=== PATIENT | male | born 1975 | race Caucasian/White ===

== ENCOUNTER 2023-09-09 06:31 | Outpatient (OUT) | payer OTHER, SELFPAY ==
[2023-09-09 06:48] LABS: Basophils Absolute Auto 0.1 10^3/uL (0.0-0.1); Basophils Percent Auto 0.8 % (0.2-2.0); Eosinophils Absolute Auto 0.1 10^3/uL (0.0-0.7); Eosinophils Percent Auto 1.4 % (0.9-7.0); Hematocrit 45.8 % (42.0-54.0); Hemoglobin 15.3 g/dL (14.0-18.0); Immature Granulocytes Abs Auto 0.05 10^3/uL (0.00-0.03); Immature Granulocytes Pct Auto 0.6 % (0.0-0.5); Lymphocytes Absolute Auto 2.4 10^3/uL (1.2-3.8); Lymphocytes Percent Auto 29.7 % (20.5-60.0); Mean Corpuscular HGB Conc 33.4 g/dL (29.9-35.2); Mean Corpuscular Hemoglobin 29.1 pg (25.9-34.0); Mean Corpuscular Volume 87.1 fL (80.0-94.0); Mean Platelet Volume 8.8 fL (9.5-13.5); Monocytes Absolute Auto 0.6 10^3/uL (0.3-0.8); Neutrophils Absolute Auto 4.8 10^3/uL (1.4-6.5); Neutrophils Percent Auto 60.5 % (43.0-75.0); Platelet Count 287 10^3/uL (150-450); Red Blood Count 5.26 10^6/uL (4.70-6.10)
[2023-09-09 07:07] LABS: Alanine Aminotransferase 32 U/L (16-63); Albumin Level 3.6 g/dL (3.4-5.0); Alkaline Phosphatase 71 U/L (46-116); Anion Gap 16.2; Aspartate Amino Transferase 17 U/L (15-37); BUN Creatinine Ratio 11.4; Bilirubin Total 0.4 mg/dL (0.2-1.0); Calcium 9.2 mg/dL (8.5-10.1); Carbon Dioxide 25.2 mmol/L (21.0-32.0); Chloride 105 mmol/L (98-107); Chol HDL Ratio 5.7; Cholesterol 279 mg/dL (<=200); Estimated GFR (African America >60 (>=60); Estimated GFR (Non-African Ame >60 (>=60); Globulin 3.7 g/dL; Glucose 104 mg/dL (74-106); HDL Cholesterol 49 mg/dL (40-60); Potassium 4.4 mmol/L (3.5-5.1); Sodium 142 mmol/L (136-145); Total Protein 7.3 g/dL (6.4-8.2); Triglycerides 197 mg/dL (<=150); VLDL CHOLESTEROL 39.4 mg/dL
[2023-09-09 09:48] LABS: Prostate Specific Antigen Scrn 1.76 ng/mL (<=4.00)
== END 2023-09-09 06:32 | disposition home or self-care (01) ==
LOC: LAB 06:34
PROVIDERS: PCP Family Medicine; Visit Provider Family Medicine
DX: Z00.00 Encounter for general adult medical examination without abnormal findings (principal)
CPT/HCPCS: 36415; 80053; 80061; 85025; G0103

== ENCOUNTER 2024-05-29 08:06 | Outpatient (OUT) | payer OTHER, SELFPAY ==
--- OUTSIDE RECORDS SUMMARY | 2024-05-29 08:20 | XMS_ITS | CCD ---
Author Organization [facility] Care Team Providers Care Health Aide Name Role Phone Saen Fishman Unavailable Unavailable Unavailable Sean Fishman Unavailable WOJCIECH, DR MILLER Attending Unavailable TIMMIS, DR MILLER Admitting Unavailable TIMMIS, DR MILLER Consulting Unavailable FISHMAN, DR SEAN Mclaughlin Primary Care Unavailable ZIEBER, DR ORLANDO Sebastian Consulting Unavailable TIMMIS, DR MILLER Admitting Unavailable TIMMIS, DR MILLER Attending Unavailable TIMMIS, DR MILLER Consulting Unavailable [place], DR YANCI Angeles Consulting Unavailable VASQUEZ ., JOSSUE Attending Unavailable VASQUEZ ., MR MARCUM Admitting Unavailable ZIEBER, DR ORLANDO Sbeastian Consulting Unavailable FISHMAN, DR SEAN Mclaughlin Primary Care Unavailable VASQUEZ ., MR JOSSUE Consulting Unavailable KYE, DR SEAN Mclaughlin Consulting Unavailable KYE, DR SEAN Mclaughlin Primary Care Unavailable FISHMAN, DR SEAN Mclaughlin Admitting Unavailable FISHMAN, DR SEAN Mclaughlin Attending Unavailable YANCI CASTRO Consulting Unavailable FISHMAN, DR SEAN Mclaughlin Attending Unavailable FISHMAN, DR SEAN Mclaughlin Consulting Unavailable KYE, DR SEAN Mclaughlin Primary Care Unavailable KYE, DR SEAN Mclaughlin Admitting Unavailable MD Dakota Leslie Attending Provider MD Dakota Leslie Referring Provider MD Sean Fishman Primary Care Provider Thompson Santana Attending Unavailable Kye, Dr. Sean Menard Primary Care Unav ailable Anuj OSORIO, Dr. Dakota Russo Attending Unavailable Anuj OSORIO, Dr. Dakota Russo Referring Unavailable Kye, Dr. Sean Menard Primary Care Unav Murray Juárez Attending Unavailable Paolo, Dr. Raman Referring Unavailable Kye, Dr. Sean Menard Primary Care Unav ailstefan Fishman, Dr. Sean Menard Primary Care Unav ailable Otto, Dr. Dakota Jean Attending Unava ilable Kye, Dr. Sean Menadr Primary Care Unav ailable Anuj OSORIO, Dr. Dakota Russo Attending Unavailable Anuj II, Dr. Dakota Russo Referring Unavailable Kye, Dr. Sean Menard Primary Care Unav ailable Thompson Santana Attending Unavailable Thompson Santana Referring Unavailable Kye, Dr. Sean Menard Primary Care Unav ailable Eugenio Dixon Unavailable MD Eugenio Dixon Attending Provider Dakota Leslie Admitting Unavail able Anuj, Dakota Russo Attending Unavail able Dakota Leslie Referring Unavail able Sean Fishman Primary Care Unavailable Anuj, Dakota Russo Admitting Unavail able Anuj, Dakota Russo Attending Unavail able Sean Fismhan Primary Care Unavailable Eugenio Dixon Admitting Unavaila ble Eugenio Dixon Attending Unavaila Sean Day Primary Care Unavailable Eugenio Dixon Admitting Unavaila ble Eugenio Dixon Attending Unavaila ble Sean Fishman Primary Care Unavailable Jonny Arteaga Unavailable Karan CRISTINA Attending Unavailable Karan CRISTINA Attending Unavailable SEAN FISHMAN Primary Care Physician Allergies Allergy Classification Reported Allergen(s) Allergy Type Date of Onset Reaction(s) Facility (1 source) No Known Medication Allergies; Translations: [No Known Medication Allergies] Propensity to adverse reactions (disorder) [facility] Repository Medications Current Medications Medication Drug Class(es) Dates Sig (Normalized) Sig (Original) [id number] 200 actuat albuterol 0.09 mg/actuat metered dose inhaler (8 sources) beta2-Adrenergic Agonist Start: 03-27-2024 Albuterol Sulfate Active 2 INH INHALATION Every 6 hours March 27, 2024 12:00am Start: 03-03-2023 take 2 puff(s) by in halation every six hours as needed Albuterol Sulfate HFA 108 (90 Base) MCG/ACT 2 puffs as needed Inhalation every 6 hrs Feb, Active Start: 03-03-2023 take 2 puff(s) by in halation every six hours as needed Albuterol Sulfate HFA 108 (90 Base) MCG/ACT 2 puffs as needed Inhalation every 6 hrs Feb, Active Start: 03-03-2023 take 2 puff(s) by in halation every six hours as needed Albuterol Sulfate HFA 108 (90 Base) MCG/ACT 2 puffs as needed Inhalation every 6 hrs for 30 days Feb, Active 24 hr alfuzosin hydrochloride 10 mg extended release oral tablet (1 source) alpha-Adrenergic Tona Start: 05-28-2024 End: 05-23-2025 take 1 tablet by mouth once daily alfuzosin 10 mg ER Tab 10 mg = 1 tab(s), Oral, Daily, X 30 day(s), # 30 tab(s), Refills(s) 11, Pharmacy: [id number], 186, cm, 05/28/24 10:05:00 EDT, Height/Length Dosing, 98, kg, 05/28/24 10:05:00 EDT, Weight Dosing Start Date: 05/28/24 Stop Date: 05/23/25 Status: Ordered Allergy (Loratadine) 10 mg oral tablet (1 source) Start: 05-28-2024 take 1 tablet by mouth once daily Allergy (Loratadine) 10 mg oral tablet 10 mg = 1 tab(s), Oral, Daily Start Date: 05/28/24 Status: Ordered Bilevel Positive Airway Pressure (Bipap) (1 source) Start: 03-27-2024 Bilevel Positive Airway Pressure (Bipap) Active 0 .Route March 27, 2024 12:00am As directed BIPAP Machine (1 source) BIPAP Machine Active fluticasone propionate 0.05 mg/actuat metered dose nasal spray (5 sources) Corticosteroid Start: 03-27-2024 Fluticasone Propionate Active 2 SPRAY INTRANASAL Daily March 27, 2024 12:00am Start: 07-04-2023 take 2 spray(s) nasa l route once daily Fluticasone Propionate 50 MCG/ACT 2 sprays in each nostril Nasally Once a day for 30 days Jun, Active Start: 07-04-2023 take 2 spray(s) nasa l route once daily Fluticasone Propionate 50 MCG/ACT 2 sprays in each nostril Nasally Once a day for 30 days Jun, Active hydroCHLOROthiazide 12.5 mg oral capsule (4 sources) Thiazide Diuretic take 1 capsule by mouth every twenty-four hours hydroCHLOROthiazide 12.5 MG 1 tablet in the morning Orally Once a day Active loratadine 10 mg oral tablet (8 sources) Start: 2023 take 10 mg by mouth once daily Loratadine Active 10 MG PO Daily March 27, 2024 12:00am take 1 tablet by deyanira th every twenty-four hours Loratadine 10 MG 1 tablet Orally Once a day Active Multi For Him - (4 sources) Multi For Him - as directed Orally Active Completed/Discontinued Medications Medication Drug Class(es) Dates Sig (Normalized) Sig (Original) 120 actuat budesonide 0.16 mg/actuat / formoterol fumarate 0.0045 mg/actuat metered dose inhaler (8 sources) Corticosteroid, beta2-Adrenergic Agonist Start: 03-27-2024 End: 04-02-2024 Budesonide-Formotero l (Symbicort) 160-4.5 mcg/actuation HFA aerosol inhaler Discontinued 2 INH INHALATION Twice daily March 27, 2024 12:00am April 02, 2024 9:22am Start: 03-03-2023 take 2 puff(s) by in halation twice daily Symbicort 160-4.5 MCG/ACT 2 puffs Inhalation Twice a day Feb, Active Start: 03-03-2023 take 2 puff(s) by in halation twice daily Symbicort 160-4.5 MCG/ACT 2 puffs Inhalation Twice a day Feb, Active hydroCHLOROthiazide 25 mg / triamterene 37.5 mg oral capsule (5 sources) Potassium-sparing Diuretic, Thiazide Diuretic take 9 capsules by mouth once daily in the morning Triamterene-HCTZ 37.5-25 MG Oral Capsule Qam Quantity: 0 Refills: 0 Ordered: 28-Jul-2022 DO Active mupirocin 0.02 mg/mg topical ointment (4 sources) RNA Synthetase Inhibitor Antibacterial Start : 06-28 Mupirocin 2 % 1 application to affected area Externally once per day for 7 days Jun, Not-Taking No Reported Medications (9 sources) No Reported Medications Quantity: 0 Refills: 0 Ordered: 14-Dec-2022 DO Active omeprazole 40 mg delayed release oral capsule (6 sources) Proton Pump Inhibitor Start : 05-28 take 1 capsule by mouth once daily omeprazole 40 mg Cap-DR 40 mg = 1 cap(s), Oral, Daily, take 1 capsule by mouth once daily Start Date: 05/28/24 Status: Ordered Start: 03-27-2024 take 40 mg by mouth once daily Omeprazole Active 40 MG PO Daily March 27, 2024 12:00am Start: 07-04-2023 take 1 capsule by mo uth every twenty-four hours Omeprazole 40 MG 1 capsule Orally Once a day for 30 days Jun, Active triamcinolone acetonide 40 mg/ml injectable suspension (13 sources) Corticosteroid Start: 02-28-2023 Kenalog-40 May, 60 mg Problems Active Problems Problem Classification Problem Date Documented Date Episodic/Chronic Allergic reactions (13 sources) H/O: multiple allergies; Translations: [Allergy status to unspecified drugs, medicaments and biological substances status] Episodic Asthma (11 sources) Mild intermittent asthma; Translations: [Mild intermittent asthma, uncomplicated] Chronic Cancer; other and unspecified primary (17 sources) Sellar ependymoma of posterior pituitary gland; Translations: [Malignant neoplasm of pituitary gland and craniopharyngeal duct] Chronic Disorders of lipid metabolism (1 source) Hypercholesterolemia 07-24-2019 Chronic Esophageal disorders (6 sources) Gastroesophageal reflux disease; Translations: [Gastro-esophageal reflux disease without esophagitis] Chronic Essential hypertension (12 sources) Hypertensive disorder; Translations: [Essential (primary) hypertension] Chronic Genitourinary symptoms and ill-defined conditions (4 sources) Sensation as if bladder still full; Translations: [Feeling of incomplete bladder emptying] Onset: 4 Episodic Hyperplasia of prostate (2 sources) Benign prostatic hypertrophy with outflow obstruction; Translations: [Benign prostatic hyperplasia with lower urinary tract symptoms] Onset: 4 Chronic Inflammatory conditions of male genital organs (1 source) Epididymitis 07-24-2019 Episodic Joint disorders and dislocations; trauma-related (4 sources) Unspecified internal derangement of left knee; Translations: [UNS INTERNAL DERANGEMENT LEFT KNEE] Onset: 2 Chronic Lymphadenitis (13 sources) Lymphadenopathy; Translations: [Localized enlarged lymph nodes] Episodic Malaise and fatigue (13 sources) Fatigue; Translations: [Other fatigue] Episodic Other aftercare (1 source) Long-term current use of inhaled steroid; Translations: [intermediate (current) use of inhaled steroids] Episodic Other aftercare (1 source) intermediate (current) use of inhaled steroids Episodic Other and ill-defined heart disease (1 source) Cardiomegaly Chronic Other and ill-defined heart disease (9 sources) Disorder of right cardiac ventricle ; Translations: [Cardiomegaly] Chronic Other diseases of bladder and urethra (1 source) Urethral stricture; Translations: [Unspecified membranous urethral stricture, male] Onset: 4 Episodic Other diseases of veins and lymphatics (1 source) Varicocele 07-24-2019 Episodic Other ear and sense organ disorders (4 sources) Sensorineural hearing loss, unilateral, left ear, with unrestricted hearing on the contralateral side; Translations: [SHL UNI LT UNRESTRCT HEAR CONTRALAT] Onset: 2 Chronic Other endocrine disorders (4 sources) Other disorders of pituitary gland; Translations: [OTHER DISORDERS OF PITUITARY GLAND] Onset: 2 Chronic Other endocrine disorders (1 source) Testicular hypofunction; Translations: [Testicular hypofunction] Onset: 4 Chronic Other endocrine disorders (1 source) Male hypogonadism 05-28-2024 Chronic Other lower respiratory disease (6 sources) Other forms of dyspnea; Translations: [OTHER FORMS OF DYSPNEA] Onset: 3 Episodic Other lower respiratory disease (9 sources) Dyspnea; Translations: [Shortness of breath] Episodic Other lower respiratory disease (1 source) Dyspnea, unspecified Episodic Other male genital disorders (1 source) Pain in testicle 07-24-2019 Episodic Other nervous system disorders (20 sources) Intracranial mass; Translations: [Other conditions of brain] Onset: 2 Chronic Other nervous system disorders (1 source) Other specified disorders of brain; Translations: [Other specified disorders of brain] Onset: 2 Chronic Other nutritional; endocrine; and metabolic disorders (1 source) Body mass index (BMI) 70 or greater, adult; Translations: [Body mass index [BMI] 70 or greater, adult] Onset: 2 Chronic Other nutritional; endocrine; and metabolic disorders (9 sources) Overweight in adulthood with body mass index of 25 or more but less than 30; Translations: [Overweight] Episodic Other nutritional; endocrine; and metabolic disorders (1 source) Body mass index 25-29 - overweight; Translations: [Body mass index (BMI) 28.0-28.9, adult] Episodic Other screening for suspected conditions (not mental disorders or infectious disease) (16 sources) Echocardiogram abnormal; Translations: [Nonspecific (abnormal) findings on radiological and other examination of other intrathoracic organs] Onset: 4 Episodic Other upper respiratory disease (8 sources) Allergic rhinitis; Translations: [Allergic rhinitis, unspecified] Chronic Other upper respiratory disease (2 sources) Allergic rhinitis, unspecified Chronic Other upper respiratory disease (4 sources) Rhinitis; Translations: [Chronic rhinitis] Chronic Other upper respiratory disease (1 source) Chronic rhinitis Chronic Otitis media and related conditions (1 source) Non-suppurative otitis media; Translations: [Unspecified nonsuppurative otitis media, left ear] Episodic Pulmonary heart disease (10 sources) Cor pulmonale; Translations: [Cor pulmonale (chronic)] Onset: 3 Chronic Residual codes; unclassified (7 sources) Daytime somnolence; Translations: [Other hypersomnia] Chronic Residual codes; unclassified (1 source) Other hypersomnia Chronic Residual codes; unclassified (6 sources) Obstructive sleep apnea syndrome; Translations: [Obstructive sleep apnea (adult) (pediatric)] Chronic Residual codes; unclassified (2 sources) Obstructive sleep apnea (adult) (pediatric) Chronic Residual codes; unclassified (14 sources) Flushing; Translations: [Flushing] Episodic Residual codes; unclassified (1 source) Family history of cancer; Translations: [Family history of malignant neoplasm of prostate] Onset: 4 Episodic Residual codes; unclassified (1 source) Family history of prostate cancer 05-28-2024 Episodic Screening and history of mental health and substance abuse codes (11 sources) Personal history of nicotine dependence; Translations: [Ex-smoker] Onset: 3 Episodic Unclassified (1 source) Other hypersomnia; Translations: [Other hypersomnia] Onset: 3 Unclassified (1 source) Male membranous urethral stricture 05-28-2024 Past or Other Problems Problem Classification Problem Date Documented Da te Episodic/Chronic Other and unspecified benign neoplasm (12 sources) Nevus of choroid; Translations: [Benign neoplasm of choroid] Onset: 08-05-2022 Episodic Other lower respiratory disease (1 source) Shortness of breath; Translations: [Shortness of breath] Onset: 12-20-2022 Episodic Residual codes; unclassified (1 source) Flushing; Translations: [Flushing] Onset: 07-28-2022 Episodic Results Test Name Value Interpretation Reference Range Facility Ambulatory Visit Summaryon 0 05-28-2024 Ambulatory Visit Summary Ambulatory Visit Summary ZAYRA YANES :1975 Visit Date:05/28/2024 Ambulatory Visit Instructions Your Diagnosis BPH with urinary obstruction Elevated PSA Membranous urethral stricture Feeling of incomplete bladder emptying Hypogonadism male Family history of prostate cancer in father Your Care Team Attending Physician - Karan CRISTINA MD Primary Care Physician - SEAN FISHMAN MD This Is Your Medications List alfuzosin (alfuzosin 10 mg ER Tab) Contact prescribing physician if questions or concerns loratadine (Allergy (Loratadine) 10 mg oral tablet) omeprazole (omeprazole 40 mg Yariel-) Procedures Performed Cystoscope (08/13/2019), TUIP - Transurethral incision of prostate (04/29/2011), Urodynamics (02/25/2011), Cystoscopy (03/20/2010), History of vasectomy (08/22/2008), Scrotal varicocelectomy (08/19/2008), Urodynamics. Discharge Vitals Heart Rate (Peripheral) 69 Respiratory Rate 16 Blood Pressure 132/93 Height 186 cm Height 73 in Weight 98 kg Weight 215.6 lb BMI 28.33 What to do next Scheduled Follow-Up Appointments Tuesday 2:45 PM EST With: Karan CRISTINA MD Where: [facility] [address] [place] [address]- You Need to Schedule the Following Appointments Follow Up with Karan CRISTINA MD, URL When: Where: [facility] [address], [place] [address]- Medications What How Much When Instructions New alfuzosin (alfuzosin 10 mg ER Tab) 1 Tablets By Mouth Every day Duration: 30 Days Refills: 11 Pickup at [facility] #[id number] Unchanged loratadine (Allergy (Loratadine) 10 mg oral tablet) 1 Tablets By Mouth Every day Contact prescribing physician if questions or concerns Unchanged omeprazole (omeprazole 40 mg Cap-DR) 1 Capsules By Mouth Every day take 1 capsule by mouth once daily Contact prescribing physician if questions or concerns Pharmacy Information [facility] #[id number]: [address], [place] [phone] Allergies No Known Medication Allergies Problems Ongoing - Any problem that you are currently receiving treatment for. BPH with urinary obstruction Elevated cholesterol Elevated PSA Epididymitis Family history of prostate cancer in father Hypogonadism male Membranous urethral stricture Nocturia Testicle pain Urinary frequency Urinary hesitancy Varicocele Patient Survey You may receive a survey via text or e-mail asking about your office visit. Please share your experience with us by completing your survey. We appreciate your feedback and thank you for choosing us for your care. Education Materials Benign Prostatic Hyperplasia Benign prostatic hyperplasia (BPH) is an enlarged prostate gland that is caused by the normal aging process. The prostate may get bigger as a man gets older. The condition is not caused by cancer. The prostate is a walnut-sized gland that is involved in the production of semen. It is located in front of the rectum and below the bladder. The bladder stores urine. The urethra carries stored urine out of the body. An enlarged prostate can press on the urethra. This can make it harder to pass urine. The buildup of urine in the bladder can cause infection. Back pressure and infection may progress to bladder damage and kidney (renal) failure. What are the causes? This condition is part of the normal aging process. However, not all men develop problems from this condition. If the prostate enlarges away from the urethra, urine flow will not be blocked. If it enlarges toward the urethra and compresses it, there will be problems passing urine. What increases the risk? This condition is more likely to develop in men older than 50 years. What are the signs or symptoms? Symptoms of this condition include: ? Getting up often during the night to urinate. ? Needing to urinate frequently during the day. ? Difficulty starting urine flow. ? Decrease in size and strength of your urine stream. ? Leaking (dribbling) after urinating. ? Inability to pass urine. This needs immediate treatment. ? Inability to completely empty your bladder. ? Pain when you pass urine. This is more common if there is also an infection. ? Urinary tract infection (UTI). How is this diagnosed? This condition is diagnosed based on your medical history, a physical exam, and your symptoms. Tests will also be done, such as: ? A post-void bladder scan. This measures any amount of urine that may remain in your bladder after you finish urinating. ? A digital rectal exam. In a rectal exam, your health care provider checks your prostate by putting a lubricated, gloved finger into your rectum to feel the back of your prostate gland. This exam detects the size of your gland and any abnormal lumps or growths. ? An exam of yo (more content not included)... Normal [facility] Urology Office/Clinic Noteon 05-28-2024 Urology Office/Clinic Note Urology Office/Clinic Note Chief Complaint Re establish care HPI Staff 49 year old male new patient presents today to re establish care. Last saw Dr. Kathleen 08/13/2019. Previous Dx: BPH with urinary obstruction, urinary frequency, urinary hesitancy, nocturia. S/P cysto/UD 08/13/2019. PVR: 203 ml IPSS: 18 Dysuria: denies Incomplete bladder emptying: yes Hematuria: denies visible blood Frequency: once an hour sometimes but usually once every 2-3 hours Urgency: denies Nocturia: once a night Stream: denies hesitancy, stream varies Leaking: denies Post void dripping: denies Wearing pads/ Depends: denies Urge incontinence: denies Stress incontinence: denies Incontinence without Sensory Awareness: denies Abdominal pain: denies Flank pain: denies Sexual complaints: _ History of Present Illness Tests reviewed: reviewed UA I have reviewed the previous health record information and history for this patient from Dr. Cristina. I have reviewed and verified the staff HPI to be accurate for this encounter. Review of Systems PHQ Score Initial Depression Screen Score: 0 SCORE ROS - Provider Constitutional: denies weight loss, denies hot flashes. Eyes: denies eye problems. Gastrointestinal: denies nausea, denies vomiting. Cardiovascular: denies chest pain or angina. Integumentary: no dryness Musculoskeletal: denies musculoskeletal symptoms. ENMT: denies otolaryngeal symptoms. Respiratory: no shortness of breath. Heme/Lymph: denies easy bleeding tendency, denies easy bruising tendency. Psychiatric: no confusion, no anxiety. Genitourinary: See HPI. Physical Exam Vitals & Measurements HR: 69(Peripheral) RR: 16 BP: 132/93 HT: 73 in HT: 186 cm WT: 98 kg WT: 215.6 lb BMI: 28.33 General Appearance: alert, no distress, well nourished, well developed male. Genitourinary: normal scrotum, normal testes, normal urethra, normal epididymis, normal vas deferens/spermatic cord. Flank Pain: none. Bladder: nonpalpable. Prostate: normal prostate, estimated weight 30 gms, no hard nodule observed. Assessment/Plan Zayra is a 49 yo male new pt here to establish care. Last seen by Dr. Kathleen 08/13/19. 1. BPH with urinary obstruction (N40.1: Benign prostatic hyperplasia with lower urinary tract symptoms) S/p TUIP by Dr. cristina 04/29/11. Cysto/UD by Dr. Kathleen 08/13/19 - a stricture in the membranous urethra. Prostatic fossa showed moderate enlargement of the lateral lobes. [1] a very slight bladder neck narrowing. [2] UA today negative for blood and infection. IPSS 18. Drinks over a gallon of water daily which causes him frequency. Cup of coffee/tea in the morning. No burning or blood. No urgency. Nocturia 1x/night, which pt attributes to being a light sleeper. Stream is variable. Discussed starting prostate med to help with stream. Pt elects to start med. -Start Alfuzosin 10 mg ER qd. SEs discussed. Rx sent [facility]. 2. Elevated PSA (R97.20: Elevated prostate specific antigen [PSA]) PSA: 09/09/23 - 1.76 Explained this level is in the absolute normal range but it is too high for his age. ALEJANDRO ~30 g, no nodules. Follow up 2 mos with PSA F&T and PVR or sooner if needed. Pt understands and agrees with plan. 3. Membranous urethral stricture (N35.913: Unspecified membranous urethral stricture, male) See #1. 4. Feeling of incomplete bladder emptying (R39.14: Feeling of incomplete bladder emptying) PVR (cc): 05/28/24 - -Start Alfuzosin above. 5. Hypogonadism male (E29.1: Testicular hypofunction) extremely tired all the time. T level last checked a few years ago, was borderline low. Educated pt that testicles can variably produces testosterone while on TRT. Pt was tested for PARAMJIT last year. CPAP did not help, BIPAP helped a little but there were no changes in his sleep study results. Shares they could treat it but it wouldn't help you. PARAMJIT contributing to fatigue. -T level prior to next OV. To be done in AM. 6. Family history of prostate cancer in father (Z80.42: Family history of malignant neoplasm of prostate) Father was unable to make it through the tests. Follow-up With When Contact Information GREG GUAMAN, Karan Sebastian, URL [facility] [address], [place] [address]- Additional Instructions: 2 mos with PSA F&T and PVR and T level Patient Education Benign Prostatic Hyperplasia I, Cierra Mccrary, personally scribed for Dr. Cristina on 05/28/2024 10:39:43. . Documentation recorded by the scribe, Cierra Mccrary, accurately reflects the services(s) I performed and decisions made by me. Authenticated by Dr. Cristina on 05/28/2024 10:41:43. Problem List/Past Medical History Ongoing BPH with urinary obstruction Elevated cholesterol Elevated PSA Epididymitis Family history of prostate cancer in father Hypogonadism male Membranous urethral stricture Nocturia Testicle pain Urinary frequency U (more content not included)... [facility] [facility] Comment on above: Result Comment: Elec tronically Signed By: Karan CRISTINA MD\.br\Date and Time Signed: 05/28/24 10:41 EDT\.br\Electronically Co-Signed By: Cierra Mccrary\.br\Date and Time Co-Signed: 05/28/24 10:40 EDT JAMISON Antinuclear Antibodieson 03-14-2023 Antinuclear Abs, IFA Negative Normal . [facility] Comment on above: Result Comment: Nega tive <1:80 Borderline 1:80 Positive >1:80 ICAP nomenclature: AC-0 For more information about Hep-2 cell patterns use ANApatterns.org, the official website for the International Consensus on Antinuclear Antibody (JAMISON) Patterns (ICAP). Performed at: [facility] [id number] Automatic Serging Machine Operator: Vinicius Quarles PhD, Phone: [phone] PERFORMED BY: [place] [address] PATHOLOGIST TAPER/FINISHER DAGO DEMARCO M.D. Performed By: #### C RP, ESR #### [address] #### JAMISON #### [facility] , C reactive protein [Mass/vol ume] in Serum or PlasmaOrdered By: Eugenio Dixon on 03-14-2023 CRP [Mass/Vol] < 0.5 mg/dL 0.0-0.5 [facility] C-Reactive Proteinon 023 CRP [Mass/Vol] mg/L Normal 0.0-0.5 [facility] Comment on above: Result Comment: PERF ORMED BY: [place] [address] PATHOLOGIST TAPER/FINISHER DAGO DEMARCO M.D. Performed By: #### C RP, ESR #### [place] [address] [place] #### JAMISON #### [facility] , CT angio chest PE protocolon 03-14-2023 CT angio chest PE protocol [facility] [place] [address] [place] [address] CT Scan Report Signed Patient: Zayra Yanes MR#: [id number] : 1975 Acct:[id number] Age/Sex: 47 / M ADM Date: 03/14/23 Loc: CT Room: Type: [facility] Attending Dr: Eugenio Dixon MD Copies to: Eugenio Dixon MD Ordering Provider: Eugenio Dixon MD Date of Service: 03/14/23 CT/CT angio chest PE protocol: I27.81 CTA Chest with PE protocol TECHNIQUE: Axial imaging with 2-D and 3-D reconstruction. 71cc of Isovue-[address] exam was performed using one or more the following dose reduction techniques: Automated exposure control, adjustment of the MA and/or Kv according to patient size, or use of the iterative reconstruction technique. History: Chest pain and shortness of breath. COMPARISON: None THYROID: Unremarkable TRACHEA AND BRONCHI: Patent ESOPHAGUS: Unremarkable. HEART: Within normal limits PERICARDIAL EFFUSION: None CORONARY ARTERY CALCIFICATION: None MEDIASTINUM: No adenopathy. No pneumoperitoneum. No mediastinal hematoma. PULMONARY ANGEL: No hilar mass or adenopathy is seen. THORACIC AORTA Unremarkable PULMONARY EMBOLUS: None LUNG NODULE None LUNGS: Lungs are clear PLEURAL EFFUSION: Done PNEUMOTHORAX: No pneumothorax seen. CHEST WALL: No abnormality AXILLA: Unremarkable BONY STRUCTURES Intact UPPER ABDOMEN: Images of the upper abdomen are noncontributory. CT/CT angio chest PE protocol IMPRESSION: No pulmonary embolus. No acute chest findings. Impression dictated by: Tommy Sierra M.D.03/14/2023 12:39 PM Dictation Location: [place] [address] Transcribed By: [facility] 03/14/23 1239 Dictated By: Tommy Sierra DO 03/14/23 1232 Signed By: 03/14/23 1239 Normal [facility] Erythrocyte Sedimentation Ra zev 03-14-2023 ESR (Bld) [Velocity] 3 mm/h Normal 0-14 [facility] Comment on above: Result Comment: PERF ORMED BY: [place] [address] PATHOLOGIST TAPER/FINISHER DAGO DEMARCO M.D. Performed By: #### C RP, ESR #### [address] #### JAMISON #### [facility] , Erythrocyte sedimentation ra te by Photometric methodOrdered By: Eugenio Dixon on 03-14-2023 ESR Photometric method (Bld) [Velocity] 3 mm/hr 0-14 [facility] Serum nuclear antibody titer Ordered By: Eugenio Dixon on 03-14-2023 Nuclear Ab (S) [Titer] Negative . [facility] Comment on above: Negative <1:80 Woo biswas 1:80 Positive >1:80ICAP nomenclature: AC-0For more information about Hep-2 cell patterns useANApaCarbonetworkserns.org, the official website for theInternational Consensus on Antinuclear Antibody (JAMISON)Patterns (ICAP).Performed at: [facility] [id number] Director: Vinicius Quarles PhD, Phone: [phone] Office Visit (Cardiology)on 12-29-2022 Follow-up visit Diagnoses/Problems Assessed Right ventricular enlargement (429.3) (I51.7) Shortness of breath (786.05) (R06.02) Overweight with body mass index (BMI) of 28 to 28.9 in adult (278.02,V85.24) (E66.3,Z68.28) Abnormal PFT (794.2) (R94.2) Orders Abnormal PFT, Shortness of breath Pulmonary Medicine Referral Evaluation and Treatment Evaluate AND Treat Status: Hold For - Scheduling,Retrospective Authorization Requested for: [id number] Overweight with body mass index (BMI) of 28 to 28.9 in adult Healthy Weight Tips; Status:Complete - Retrospective Authorization; Done: [id number] Some eating tips that can help you lose weight.; Status:Complete - Retrospective Authorization; Done: [id number] Patient Instructions Please bring all medicines, vitamins, and herbal supplements with you when you come to the office. Prescriptions will not be filled unless you are compliant with your follow up appointments or have a follow up appointment scheduled as per instruction of your physician. Refills should be requested at the time of your visit. Follow up in 6 months Chief Complaint ZAYRA YANES is being seen for a 3 week follow-up of. History of Present Illness Patient returns in follow-up of recent testing. Treadmill testing was unrevealing, as expected. Chest x-ray was clear. PFTs, though, demonstrate a response to bronchodilator therapy. The pulmonary video game technician also suggested to the patient he might have sleep apnea as an element of his PFT findings. In light of all the above it appears that the patient has no coronary disease, no left ventricular dysfunction and no arrhythmia. His problems appear to be predominantly right ventricular and pulmonary in origin and because of this I recommended pulmonary consultation. This was discussed in detail and he agrees to the plan. I suggested follow-up at the end of the summer as a backstop in his plan of care. Surgical History Problems History of Knee surgery History of Vasectomy Current Meds Medication NameInstruction No Reported Medications Allergies Medication No Known Drug Allergies Recorded By: Tennille Mcclure; 07/28/2022 10:06:10 AM Social History Problems Caffeine use (V49.89) (Z78.9) Former smoker (V15.82) (Z87.891) No illicit drug use Social alcohol use (V49.89) (Z78.9) Review of Systems Constitutional: not feeling tired. Eyes: no eyesight problems. ENT: no hearing loss and no nosebleeds. Cardiovascular: no intermittent leg claudication and as noted in HPI. Respiratory: no chronic cough and no shortness of breath. Gastrointestinal: no change in bowel habits and no blood in stools. Genitourinary: no urinary frequency and no hematuria. Skin: no skin rashes. Neurological: no seizures and no frequent falls. Psychiatric: no depression and not suicidal. All other systems have been reviewed and are negative for complaint. Vitals Vital Signs Recorded: [id number] 09:36AMRecorded: 64Zzc0644 08:37AM Heart Rate72, R Marpgf68, L Radial Ywegfsnw589, RUE, Iyvgfgx052, LUE, Sitting Lsrvkipxp71, RUE, Jcvidvj19, LUE, Sitting Height6 ft 1 in6 ft 1 in Zejoiz202 lb 216 lb BMI Kljvxobwoy13.5 kg/m228.5 kg/m2 BSA Calculated2.222.22 Tobacco Useb) No PHQ-2 Patient Declined/Screening not indicatedYes Falls Screening (Age 18+)c) Not medically indicated Physical Exam Constitutional: alert and in no acute distress. Eyes: no erythema, swelling or discharge from the eye . Neck: neck is supple, symmetric, trachea midline, no masses and no thyromegaly . Pulmonary: no increased work of breathing or signs of respiratory distress and lungs clear to auscultation. Cardiovascular: carotid pulses 2+ bilaterally with no bruit , JVP was normal, no thrills , regular rhythm, normal S1 and S2, no murmurs , pedal pulses 2+ bilaterally and no edema . Abdomen: abdomen non-tender, no masses and no hepatomegaly . Skin: skin warm and dry, normal skin turgor . Psychiatric judgment and insight is normal and oriented to person, place and time . Signatures Electronically signed by : Dakota Leslie MD; Dec 29 2022 9:38AM EST (Author) Normal [facility] Tobacco Screening.on 023 Fall risk assessment c) Not medically indicated -[facility] 600 DO Work Phone: Tobacco use status [facility]PHS b) No -[facility] 600 DO Work Phone: Tobacco Screening. Yes [facility] 600 DO Work Phone: No Panel Informationon 12-22 -[facility] 250 DO Work Phone: STR cardiac stress/regularon 12-22-2022 STR cardiac stress/regular [facility] [place] [address] Cardiac Stress Test Signed Patient: Zayra Yanes MR#: [id number] : 1975 Acct:[id number] Age/Sex: 47 / M ADM Date: 12/20/22 Loc: Room: Type: [facility] Attending Dr: Dakota Leslie MD Copies to: Dakota Leslie MD Ordering Provider: Dakota Leslie MD Date of Service: 12/20/22 STR/STR cardiac stress/regular: SOB ORDERING: Yamilet Leslie MD SUPERVISING: Yamilet Leslie MD CLINICAL INFORMATION: Dyspnea. The patient was exercised according to Javid protocol and accomplished total exercise duration of 8 minutes. Resting heart rate was 70 beats per minute. Peak heart rate 153 beats per minute, which is 88% of predicted heart rate for age. Workload was 10.1 METS. Resting blood pressure 128/80 and peak blood pressure is 182/90. With exercise, the patient had dyspnea that was extreme. Pulse oximetry was not performed. The patient had no arrhythmias and no ischemic ST-T wave changes. SUMMARY: 1. Resting EKG demonstrates normal sinus rhythm and normal EKG. 2. No angina with exercise. 3. No ischemic ST-T wave change noted. 4. There were no arrhythmias. 5. The patient had a satisfactory heart rate response. Blood pressure response was acceptable. Work capacity for age is mildly diminished. 6. This graded exercise test is normal. It demonstrates no angina, no ischemic change, and no arrhythmia. Pulse oximetry was not done even though this was our request for this test. Transcribed By: HANNAH 12/22/22 1738 Dictated By: Dakota Leslie MD 12/22/22 1649 Signed By: 12/23/22 1010 Normal [facility] Radiologyon 12-20-2022 XR Chest 2 Views Normal -[facility] 250 DO Work Phone: XR chest 2V*on 12-20-2022 XR chest 2V* [facility] [place] [address] [place] [address] XRay Report Signed Patient: Zayra Yanes MR#: [id number] : 1975 Acct:[id number] Age/Sex: 47 / M ADM Date: 12/20/22 Loc: Room: Type: [facility] Attending Dr: Dakota Leslie MD Copies to: Dakota Leslie MD Ordering Provider: Dakota Leslie MD Date of Service: 12/20/22 XR/XR chest 2V*: R06.02 Chest 2 views CLINICAL HISTORY: Left to mid chest pain for a few months. Shortness of breath. COMPARISON: None FINDINGS: Heart normal size. Lungs are clear. No free air. XR/XR chest 2V* IMPRESSION: NO ACUTE CARDIOPULMONARY ABNORMALITY. Impression dictated by: Archie Agustin Jr., D.OMacie12/20/2022 4:19 PM Dictation Location: [place] [address] Transcribed By: ROMANA 12/20/22 1619 Dictated By: Archie Agustin Jr, DO 12/20/22 1618 Signed By: 12/20/22 1619 [facility] Office Visit (Cardiology)on 12-14-2022 Follow-up visit Diagnoses/Problems Assessed Shortness of breath (786.05) (R06.02) Overweight with body mass index (BMI) of 28 to 28.9 in adult (278.02,V85.24) (E66.3,Z68.28) Former smoker (V15.82) (Z87.891) Right ventricular enlargement (429.3) (I51.7) Orders Health Maintenance IO EKG Electrocardiogram- 12 Lead; Status:Complete; Done: 14Dec2022 Overweight with body mass index (BMI) of 28 to 28.9 in adult Healthy Weight Tips; Status:Complete; Done: 14Dec2022 Some eating tips that can help you lose weight.; Status:Complete; Done: 14Dec2022 Right ventricular enlargement, Shortness of breath Cardiac Stress Test; Status:Hold For - Scheduling; Requested for:14Dec2022; Sellar ependymoma of posterior pituitary gland Stop: Triamterene-HCTZ 37.5-25 MG Oral Capsule Shortness of breath Pulmonary Function Test with/without bronchodilators; Status:Active; Requested for:14Dec2022; Xray Chest 2 View PA + Lateral; Status:Hold For - Scheduling; Requested for:14Dec2022; Radiologist to Determine Optimal Study : Y What are the patient's signs and symptoms? : shortness of breathe SocHx: Former smoker Tobacco Use Screening; Status:Complete; Done: 14Dec2022 Patient Instructions Please bring all medicines, vitamins, and herbal supplements with you when you come to the office. Prescriptions will not be filled unless you are compliant with your follow up appointments or have a follow up appointment scheduled as per instruction of your physician. Refills should be requested at the time of your visit. patient to discontinue triamterene-hctz. Follow-up after testing completed patient was walked around the office with oxygen Level of 96% The provider reviewed the following test(s) and result(s) with the patient: echocardiogram Chief Complaint ZAYRA YANES is being seen for a consultation for Lelszujm-Eogch-tzjmw ventricular enlargement. History of Present Illness Patient is seen for an abnormal echo demonstrating right ventricular enlargement. He states that he was feeling well until about 6 months ago. He had no particular illness or event. He is noted, though, slow incremental progressive and worsening decline in his aerobic capacity. He used to be able to run Ironman competitions and now finds himself easily fatigued and short of breath with minimal exertion. He describes generalized arm and leg weakness when walking. He has had no particular event. He had COVID several years ago but had no post COVID dyspnea. He had arthroscopy of his left knee months ago but had the shortness of breath even before the arthroscopy and hence I doubt deep vein thrombosis and/or pulmonary embolism. He denies any abrupt onset of the disease and it sounds as if it was slow and incremental He is low risk for coronary disease. He might have hyperlipidemia but no other risk factors. We ambulated him in the office and his oxygen saturation was stable. His echo demonstrates right ventricular enlargement but there is no suggestion of pulmonary hypertension. Nonetheless I suggest to him that isolated right ventricular changes are typically on the basis of lung disease and because of this I recommended a chest x-ray and pulmonary function studies. If these are unrevealing we might consider CT scan of the chest. Because of his complaints of shortness of breath with exertion I recommended treadmill testing. Not overtly suspicious of coronary disease but I wish to quantify his exertional dyspnea and determine if in fact he develops dyspnea with exertion and/or hypoxia with exertion. Because of this we will measure pulse oximetry during the treadmill test. I advised him that I am doubtful this is on the basis of left heart failure or valve disease or coronary disease that he appears to understand my recommendations and explanation. We will reconvene after test results become available. Surgical History Problems History of Knee surgery History of Vasectomy Current Meds Medication NameInstruction No Reported Medications Triamterene-HCTZ 37.5-25 MG Oral CapsuleQam Patient did not bring medication list or bottles. Updated verbally with patient Allergies Medication No Known Drug Allergies Recorded By: Tennille Mcclure; 07/28/2022 10:06:10 AM Social History Problems Caffeine use (V49.89) (Z78.9) Former smoker (V15.82) (Z87.891) No illicit drug use Social alcohol use (V49.89) (Z78.9) Review of Systems Constitutional: not feeling tired. Eyes: no eyesight problems. ENT: no hearing loss and no nosebleeds. Cardiovascular: no intermittent leg claudication and as noted in HPI. Respiratory: no chronic cough and no shortness of breath. Gastrointestinal: no change in bowel habits and no blood in stools. Genitourinary: no urinary frequency and no hematuria. Skin: no skin rashes. Neurological: no seizures and no frequent falls. Psychiatric: no depression and not suicidal. All other systems have been reviewed and are negative for complaint. Vitals Vital S (more content not included)... Normal [facility] PHQ-2 VITALSon 12-14-2022 Adult depression screening assessment No [facility] [address] DO Work Phone: Tobacco Screening.on 023 Tobacco use status [facility]PHS b) No [facility] DO Work Phone: ECHOCARDIO M/2D COMPLETEon 0 11-30-2022 ECHOCARDIO M/2D COMPLETE Patient: ZAYRA YANES Exam Date: 11/30/2022 : 1975 Gender:M Ordering : DR SEAN FISHMAN M.D. Admission #: [id number] Family : Order #: [id number] CLICK HERE TO VIEW EXAM ECHOCARDIOGRAM REPORT PROCEDURE: CARDIO PULMONARY ECHOCARDIO M/2D COMP INDICATIONS: Dyspnea on exertion, former smoker COMPARISON: None. DESCRIPTION: COMPLETE ECHOCARDIOGRAM Real-time transthoracic echocardiography with 2D, M-mode, spectral and color flow Doppler performed. QUALITY: Technical quality was good. LEFT VENTRICLE: Normal chamber size. Normal left ventricular wall thickness. Systolic function is at the lower limits of normal. LV EF: Lower limits of normal left ventricular ejection fraction, (50-55%). DIASTOLIC: Normal diastolic function. ATRIAL SEPTUM: LEFT ATRIUM: Normal chamber size. RIGHT ATRIUM: Normal chamber size. RIGHT VENTRICLE: Right ventricle appears enlarged with reduced systolic function. TRICUSPID VALVE: Normal mobility and thickness. No stenosis with trivial regurgitation. No evidence of pulmonary hypertension. RVSP 21 mmHg MITRAL VALVE: Normal mobility and thickness. No evidence of mitral valve stenosis. There is no mitral annular calcification. Trivial mitral regurgitation. AORTIC VALVE: Normal trileaflet appearance. No visible sclerosis. Normal leaflet mobility. No evidence of aortic valve stenosis. No aortic regurgitation. AORTIC ROOT: Normal diameter and appearance. PULMONIC VALVE: Normal thickness and mobility. No stenosis. Trivial regurgitation. PERICARDIUM: No evidence of pericardial effusion. IVC: Collapses with inspirations. PLEURA: CONCLUSION: 1. Left ventricular systolic function is at the lower limits of normal. LVEF is 50 to 55%. 2. The right ventricle appears enlarged with reduced systolic function. 3. No significant valvular dysfunction. 4. Normal right-sided pressures. 5. No pericardial effusion. 6. If clinically indicated, cardiac MRI can provide better assessment of ventricular function. Adult Echocardiography Procedure Report Left Ventricle LVEDD (3.7 - 5.6 cm): 5.34 cm LVESD (2.2 - 4.0 cm): 3.55 cm LVIVS thickness (0.6 - 1.2 cm): 1.12 cm LVPW thickness (0.5 - 1.0 cm): 0.76 cm e': 0.09 m/s E - e': 4.62 LVOT Max Gradient: 2.32 mm[Hg] Peak Velocity (LVOT): 0.76 m/s LVOT Diameter 2.50 cm Left Ventricular Ejection Fraction: 50-55 % Left Atrium LA Volume Index (2D A2C): 63.20 ml, 63.20 ml Left Atrium Systolic Dimension: 4.62 cm Mitral Valve MV E to A Ratio: 0.73 Mitral Valve A-Wave Peak Velocity: 0.58 m/s Mitral Valve E-Wave Peak Velocity: 0.43 m/s Right Ventricle Aorta AO Root Diam: 3.69 cm Aortic Valve AoV Area (Peak Frank): 4.12 cm2, 4.12 cm2 Peak Velocity(Antegrade Flow): 0.91 m/s Peak Gradient(Antegrade Flow): 3.29 mm[Hg] Tricuspid Valve Peak Velocity (Regurgitant Flow): 2.13 m/s Peak Velocity: 0.49 m/s Pulmonic Valve Mean Gradient: 2.13 mm[Hg], 2.19 mm[Hg] Mean Velocity: 0.67 m/s, 0.68 m/s Peak Velocity: 1.00 m/s, 1.02 m/s Peak Gradient: 3.97 mm[Hg], 4.20 mm[Hg] Right Atrium Right Atrium Systolic Pressure: 43.93 ml, 43.93 ml Dictated by: Feliz House M.D. on 11/30/2022 at 18:22 Approved by: Feliz House M.D. on 11/30/2022 at 18:30 Normal [facility] ECHOCARDIO M/2D COMPLETE [facility] Other XR CHEST 2 Von 11-17-2022 XR CHEST 2 V EXAM: Chest x-ray HISTORY: . Dyspnea . COMPARISON: 05/26/2010 TECHNIQUE: Frontal and lateral chest FINDINGS: Heart and vascularity are unremarkable. Lungs are expanded and free of focal infiltrates. No acute bony abnormalities appreciated. IMPRESSION: No acute heart or lung disease identified. Electronically authenticated by: YANCI CASTRO Date: 2022-11-17 16:43 Normal [facility] TESTOST,FREE AND TOTALon TESTOSTERONE TOT.LC/MS/MS 247 ng/dL Low 250-1100 [facility] Comment on above: Result Comment: For additional information, please refer to http://education.[employer]/faq/ NrfsoRprwlpzwbzdyTBOVVAYPP912 (This link is being provided for informational/ educational purposes only.) This test was developed and its analytical performance characteristics have been determined by [place] It has not been cleared or approved by the U.S. Food and Drug Administration. This assay has been validated pursuant to the CLIA regulations and is used for clinical purposes. Performed By: #### I LGF1 #### [facility] [address] [place] [address] TESTOSTERONE,FREE 55.1 pg/mL Normal 35.0-155.0 [facility] Comment on above: Result Comment: This test was developed and its analytical performance characteristics have been determined by [employer] [place], [place]. It has not been cleared or approved by the U.S. Food and Drug Administration. This assay has been validated pursuant to the CLIA regulations and is used for clinical purposes. Performed By: #### I LGF1 #### [facility] [address] [place] [address] ACTHon 08-15-2022 ACTH 21.1 pg/mL Normal 7.2-63.3 [facility] Comment on above: Result Comment: INTE RPRETIVE INFORMATION: Adrenocorticotropic Hormone Reference interval based on samples collected between 7 a.m. and 10 a.m. No reference intervals established for p.m. collections. Pediatric reference values are the same as adults (Acta Paediatr Scand 1981;70:341-345). This assay measures intact ACTH 1-39; some types of synthetic ACTH and ACTH fragments are not detected by this assay. Performed By: [place] [id number] Irrigation District Manager: Sundeep Yancey MD, PhD Performed By: #### A [facility] #### [address] [address] INSULIN-LIKE GROWTH FACTOR 1 + Z-SCOREon 08-15-2022 IGF 1 Z SCORE CALCULATION 0.0 Normal [facility] Comment on above: Result Comment: INTE RPRETIVE INFORMATION: IGF 1 Z-SCORE CALCULATION A Z score is the number of standard deviations a given result is above (positive score) or below (negative score) the age- and sex-adjusted population mean. Results that are within the IGF-1 reference interval will have a Z score between -2.0 and +2.0. Performed By: [place] [id number] Irrigation District Manager: Sundeep Yancey MD, PhD Performed By: #### I LGF1 #### [address] [address] INSULIN-LIKE GROWTH FACTOR 139 ng/mL Normal 71-224 [facility] Comment on above: Performed By: #### I LGF1 #### [address] [address] Adrenocorticotropic Hormone, Plasmaon 08-13-2022 Corticotropin (P) [Mass/Vol] 21.1 pg/mL 7.2-63.3 [facility] Monica Pedroza Work Phone: Comment on above: INTERPRETIVE INFORMA TION: Adrenocorticotropic HormoneReference interval based on samples collected between 7 a.m. and 10 a.m. No reference intervals established for p.m. collections. Pediatric reference values are the same as adults (Acta Paediatr Scand 1981;70:341-345). This assay measures intact ACTH 1-39; some types of synthetic ACTH and ACTH fragments are not detected by this assay.Performed By: [facility] [place] [id number] Director: Sundeep Yancey MD, PhD CORTISOL, A.M.on 08-13-2022 CORTISOL, A.M. 8.0 ug/dL Normal 5.0 - 20.0 [facility] Comment on above: Performed By: #### C BRITTNEY #### [address] [id number] Cortisol A.M.on 08-13-2022 Cortisol AM peak specimen [Mass or moles/Vol] 8.0 ug/dL 5.0 - 20.0 [facility] Monica Pedroza Work Phone: DHEA SULFATEon 08-13-2022 DHEA SULFATE 107 ug/dL Normal 95 - 530 [facility] Comment on above: Result Comment: MATU RITY-BASED REFERENCE RANGES: PUBERTAL ([place]) STAGE MALE FEMALE I 5 - 265 5 - 125 II 15 - 380 15 - 150 III 60 - 505 20 - 535 IV 65 - 560 35 - 485 V 165 - 500 75 - 530 Biotin interference may cause falsely elevated results. Patients taking a Biotin dose of up to 5 mg/day should refrain from taking Biotin for 24 hours before sample collection. Providers may contact their local laboratory for further information. Performed By: #### A [facility] #### [facility] [address] [place] [address] DHEA Sulfate, Serumon 2021 DHEA-S [Mass/Vol] 107 ug/dL 95 - 530 MG-Endo crinol Monica Pedroza Work Phone: Comment on above: MATURITY-BASED REFER ENCE RANGES: PUBERTAL ([place]) STAGE MALE FEMALE I 5 - 265 5 - 125 II 15 - 380 15 - 150 III 60 - 505 20 - 535 IV 65 - 560 35 - 485 V 165 - 500 75 - 530 Biotin interference may cause falsely elevated results. Patients taking a Biotin dose of up to 5 mg/day should refrain from taking Biotin for 24 hours before sample collection. Providers may contact their local laboratoryfor further information. FSH + LHon 08-13-2022 FOLLICLE STIM. HORMONE 4.9 IU/L Normal [facility] Comment on above: Result Comment: REF VALUES FOLLICULAR 2-12 MID-CYCLE 12-25 LUTEAL PHASE 2-12 MENOPAUSE 30-150 PREPUBERTY 50% ADULT ADULT MALE 2-10 INFANTS 0-1 Performed By: #### F [facility] #### [facility] [address] [place] [address] LUTEINIZING HORMONE 2.8 IU/L Normal [facility] Comment on above: Result Comment: REF VALUES FOLLICULAR PHASE 1.9-12.5 MID-CYCLE 8.7-76.3 LUTEAL PHASE 0.5-16.9 POST MENOPAUSE 5.0-55.2 CHILDREN 0- 6.0 ADULT MALE 18-70 1.5- 9.3 ADULT MALE >70 3.1-34.6 Performed By: #### F [facility] #### [facility] [address] [place] [address] INSULIN-LIKE GROWTH FACTOR 1 + Z-SCOREon 08-13-2022 Insulin-like growth factor-I [Mass/Vol] 139 ng/mL 71-224 MG-Endocrino l Monica Pedroza Work Phone: Laboratory - Chemistry and C hemistry - challengeon 08-13-2022 Follitropin Qn 4.9 {IU/L} MG-Endocri nol Monica Pedroza Work Phone: Comment on above: REF VALUESFOLLICULAR 9-99UGA-IDGXP 12-25LUTEAL PHASE 2-12MENOPAUSE 30-150PREPUBERTY 50% ADULTADULT MALE 2-10INFANTS 0-1 Lutropin Qn 2.8 {IU/L} MG-Endocrinol Monica Pedroza Work Phone: Comment on above: REF VALUESFOLLICULAR PHASE 1.9-12.5MID-CYCLE 8.7-76.3LUTEAL PHASE 0.5-16.9POST MENOPAUSE 5.0-55.2CHILDREN 0- 6.0ADULT MALE 18-70 1.5- 9.3ADULT MALE >70 3.1-34.6 Testosterone [Mass/Vol] 247 ng/dL below low threshold 250-1100 MG-Endocrinol Monica Pedroza Work Phone: Comment on above: For additional infor marcos, please refer tohttp://education.[employer]/faq/TotalTestosteroneMS OEIDR951(This link is being provided for informational/educational purposes only.) This test was developed and its analytical performancecharacteristics have been determined by [facility] [place], [place]. It hasnot been cleared or approved by the U.S. Food and DrugAdministration. This assay has been validated pursuantto the CLIA regulations and is used for clinicalpurposes. Testosterone Free [Mass/Vol] 55.1 pg/mL 35.0-155.0 MG-Endocrinol Monica Pedroza Work Phone: Comment on above: This test was develo ped and its analytical performancecharacteristics have been determined by [facility] [place] [place]. It hasnot been cleared or approved by the U.S. Food and DrugAdministration. This assay has been validated pursuantto the CLIA regulations and is used for clinicalpurposes. OSMOLALITY,URINE SPOTon 07-21 OSMOLALITY,URINE SPOT 166 mOsm/kg Low 200 - 1200 [facility] Comment on above: Performed By: #### A CT #### [facility] [address] [place] [address] Osmolality, Urine Spoton Osmolality (U) [Osmolality] 166 mosm/kg below low threshold 200 - 1200 MG-Endocrinol Monica Pedroza Work Phone: PROLACTINon 08-13-2022 PROLACTIN 6.4 ug/L Normal 2.0 - 18.0 [facility] Comment on above: Performed By: #### P ROL #### [facility] [address] [place] [address] Prolactin, Serumon Prolactin [Mass/Vol] 6.4 ug/L 2.0 - 18.0 MG-E ndocrinol Monica Pedroza Work Phone: RENAL FUNCTION PANELon 08-13 Albumin [Mass/Vol] 4.4 g/dL Normal 3.4 - 5.0 [facility] Comment on above: Performed By: #### I LGF1 #### [facility] [address] [place] [address] Anion gap [Moles/Vol] 12 mmol/L Normal 10 - 20 [facility] Comment on above: Performed By: #### I LGF1 #### [facility] [address] [place] [address] Calcium [Mass/Vol] 9.5 mg/dL Normal 8.6 - 10.3 [facility] Comment on above: Performed By: #### I LGF1 #### [facility] [address] [place] [address] Chloride [Moles/Vol] 104 mmol/L Normal 98 - 107 [facility] Comment on above: Performed By: #### I LGF1 #### [facility] [address] [place] [address] Creatinine [Mass/Vol] 0.92 mg/dL Normal 0.50 - 1.30 [facility] Comment on above: Performed By: #### I LGF1 #### [facility] [address] [place] [address] eGFR MALE >90 Normal >90 [facility] Comment on above: Result Comment: CALC ULATIONS OF ESTIMATED GFR ARE PERFORMED USING THE 2020 CKD-EPI STUDY REFIT EQUATION WITHOUT THE RACE VARIABLE FOR THE IDMS-TRACEABLE CREATININE METHODS. https://jasn.asnjournals.org/content//ASN.1011450 988 Performed By: #### I LGF1 #### [facility] [address] [place] [address] Glucose [Mass/Vol] 84 mg/dL Normal 74 - 99 [facility] Comment on above: Performed By: #### I LGF1 #### [facility] [address] [place] [address] HCO3 (Bld) [Moles/Vol] 27 mmol/L Normal 21 - 32 [facility] Comment on above: Performed By: #### I LGF1 #### [facility] [address] [place] [address] Phosphate [Mass/Vol] 2.5 mg/dL Normal 2.5 - 4.9 [facility] Comment on above: Result Comment: The performance characteristics of phosphorus testing in heparinized plasma have been validated by the individual laboratory site where testing is performed. Testing on heparinized plasma is not approved by the FDA; however, such approval is not necessary. Performed By: #### I LGF1 #### [facility] [address] [place] [address] Potassium [Moles/Vol] 3.7 mmol/L Normal 3.5 - 5.3 [facility] Comment on above: Performed By: #### I LGF1 #### [facility] [address] [place] [address] Sodium [Moles/Vol] 139 mmol/L Normal 136 - 145 [facility] Comment on above: Performed By: #### I LGF1 #### [facility] [address] [place] [address] Urea nitrogen [Mass/Vol] 13 mg/dL Normal 6 - 23 [facility] Comment on above: Performed By: #### I LGF1 #### [facility] [address] [place] [address] Renal Function Panelon 08-13 Albumin BCP dye [Mass/Vol] 4.4 g/dL 3.4 - 5.0 MG-Endocrinol bennie-Parvez Pedroza Work Phone: Anion gap [Moles/Vol] 12 mmol/L 10 - 20 MG-Endocrinol bennie-Parvez Pedroza Work Phone: [phone] Calcium [Mass/Vol] 9.5 mg/dL 8.6 - 10.3 MG-End ocrinol Regina Pedroza Work Phone: Chloride [Moles/Vol] 104 mmol/L 98 - 107 MG-E ndocrinol Regina Pedroza Work Phone: CO2 [Moles/Vol] 27 mmol/L 21 - 32 MG-Endocr inol Monica Pedroza Work Phone: Creatinine [Mass/Vol] 0.92 mg/dL See Below MG-Endocrinol Monica Pedroza Work Phone: Comment on above: Reference Range: 0.5 0 - 1.30 Glucose [Mass/Vol] 84 mg/dL 74 - 99 MG-End ocrinol Monica Pedroza Work Phone: Phosphate [Mass/Vol] 2.5 mg/dL 2.5 - 4.9 MG-E ndocrinol Monica Pedroza Work Phone: Comment on above: The performance chris acteristics of phosphorus testing in heparinized plasma have been validated by the individual laboratory site where testing is performed. Testing on heparinized plasma is not approved by the FDA; however, such approval is not necessary. Potassium [Moles/Vol] 3.7 mmol/L 3.5 - 5.3 MG-Endocrinol Monica Pedroza Work Phone: Sodium [Moles/Vol] 139 mmol/L 136 - 145 MG-End ocrinol Monica Pedroza Work Phone: Urea nitrogen [Mass/Vol] 13 mg/dL 6 - 23 MG-Endocrinol Monica Pedroza Work Phone: Renal Function Panel >90 >90 MG-E ndocrinol Monica Pedroza Work Phone: Comment on above: CALCULATIONS OF YOMI MATED GFR ARE PERFORMED USING THE 2020 CKD-EPI STUDY REFIT EQUATION WITHOUT THE RACE VARIABLE FOR THE IDMS-TRACEABLE CREATININE METHODS.https://jasn.asnjournals.org/content//ASN .6029251172 T4 - Free Thyroxine, Serumon 08-13-2022 Free T4 [Mass/Vol] 0.66 ng/dL See Below MG-End ocrinol Monica Pedroza Work Phone: Comment on above: Reference Range: 0.6 1 - 1.12 Thyroxine Free testing is performed using different testing methodology at [facility] than at [facility]. Direct result comparisons should only be made within the same method.. Biotin can cause falsely elevated free T4 results. Patients taking a Biotin dose of up to 10 mg/day should refrain from taking Biotin for 24 hours before sample collection. Patient taking a Biotin dose of >10 mg/day should consult with their physician or the laboratory before the blood draw. THYROXINE,FREEon 08-13-2022 THYROXINE,FREE 0.66 ng/dL Normal 0.61 - 1.12 [facility] Comment on above: Result Comment: Thyr oxine Free testing is performed using different testing methodology at [facility] than at [facility]. Direct result comparisons should only be made within the same method. . Biotin can cause falsely elevated free T4 results. Patients taking a Biotin dose of up to 10 mg/day should refrain from taking Biotin for 24 hours before sample collection. Patient taking a Biotin dose of >10 mg/day should consult with their physician or the laboratory before the blood draw. Performed By: #### I LGF1 #### [facility] [address] [place] [address] TSHon 08-13-2022 TSH Qn 1.06 m[IU]/L Normal 0.44 - 3.98 [facility] Comment on above: Result Comment: TSH testing is performed using different testing methodology at [facility] than at [facility]. Direct result comparisons should only be made within the same method. Performed By: #### T SH2 #### [address] [id number] TSH - Thyroid Stimulating Ho rmone, Serumon 08-13-2022 TSH Qn 1.06 m[IU]/L See Below MG-Endocrino l shirinbennieAlanParvez Yovany Work Phone: Comment on above: Reference Range: 0.4 4 - 3.98 TSH testing is performed using different testing methodology at [facility] than at other [facility]. Direct result comparisons should only be made within the same method. Ophthalmic Eye Examon 2021 Ophthalmic Eye Exam DOCUMENT REVIEWED BY : Murray Holloway MD DOCUMENT SIGNED ELECTRONICALLY BY Murray Holloway MD ON 08/05/2022 11:16:33 AM [facility] 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 Reports ferquent BOLTON in AND around his left ear left. Gtts: not at this time OU. (-) diplopia, flashes, floaters, tinnitus, pain w/ eom, photphobia OU. 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 Ear pain led to discovery of the pituitary mass. He notes 6 months or so of gradual decline in vision with reading signs. He denies noticing any peripheral vision loss. HISTORY OF PRESENT ILLNESS: PROBLEM: Blurry vision,Loss of vision,Decreasing vision LOCATION: both eyes DURATION: several months TIMING: constant HPI was performed by Dr. Murray Holloway MD and scribed by Jason Holloway MD CURRENT MEDICATIONS: Triamterene-HCTZ 37.5-25 MG Oral Capsule - Capsule, Qam[Reported] , Evaluate ALLERGIES: No Known Drug Allergies REVIEW OF SYSTEMS: GENERAL:headaches All other Review Of Systems negative Exam ORIENTATION, MOOD AND AFFECT: Alert AND oriented x3 RIGHT EYE LEFT EYE UNCORRECTED VA N/A N/A PINHOLE 20/20 20/25+1 CORRECTED VA 20/25+1 20/25 PRESSURE METHOD: Tonopen Tonopen PRESSURES: 11 11 DATE-TIME: 08/05/2022 10:12:47 AM 08/05/2022 10:12:47 AM TRAVEL TICKETING REVIEWER: [email or web address] CONFRONTATION VF Full to count fingers AND red Full to count fingers AND red object object EXTERNAL EYE EXAM: LID: Good Position Good Position PUPIL: 5 to 3 mm, no RAPD 5 to 3 mm, no RAPD ADNEXA: Normal Normal MUSCLE BALANCE: Ortho OCULAR MOTILITY: Full COLOR VA ISHIHARA OUT OF 11 OD: 11 COLOR VA ISHIHARA OUT OF 11 OS: 11 ANTERIOR SEGMENT EXAM: TEARFILM: Good Good CONJUNCTIVA: White and quiet White and quiet CORNEA: Clear Clear ANTERIOR CHAMBER: Deep and quiet Deep and quiet IRIS: Round and reactive Round and reactive LENS: Clear Clear ANTERIOR VITREOUS: Clear Clear FUNDUS EXAM: DILATION and NUMBING DROPS: Mydriacyl 1% AND Adama 2 1/2% OU 08/05/2022 11:01:24 AM CUP TO DISC: .15 .15 OPTIC DISC: [place] and sharp [place] and sharp VITREOUS: Clear Clear MACULA: Normal reflex Normal reflex VESSELS: Normal Normal PERIPHERY: Choroidal nevus 1.5 DD No tears, breaks, or holes inferior to nerve. 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 08/05/2022 OCT RNFL OD 74 with S, N AND borderline I thinning AND OS 86. 08/05/2022 HVF 24-2 OD fovea 31, scatter MD -3.84 AND OS fovea 32, scatter MD -3.16. 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 I do not see evidence of visual field loss to suggest an optic neuropathy or chiasmopathy. I will communicate with his neurosurgery team regarding options of surveillance versus intervention given these findings. Plan Surveillance of vision. Further evaluation with Neurosurgery. Refraction AND nevus monitoring with primary eye care. Follow up in 6 months with HVF AND OCT. (dilated 08/05/2022) created by:Murray Holloway MD Murray Holloway MD DOCUMENT CREATE DATE: 08/05/2022 11:16:24 AM Received for:Murray Holloway MD,PhD Aug 05 2022 11:16AM Eastern Standard Time Normal [facility] Blood Pressure Cuff Sizeon 1 09-27-2021 Adult depression screening assessment No MG-Medicine -D lidiaglfilomena Pedroza Work Phone: Fall risk assessment a) No falls within the last year UF-Lmuzvfcp-F ouglas Yovany Work Phone: Tobacco use status CPHS b) No QO-Quvbggex-I ouglas Yovany Work Phone: Blood Pressure Cuff Size Adult CS-Olnpspzk-Q ouglas Yovany Work Phone: Initial Visit (Endocrinology )on 07-28-2022 Initial Visit (Endocrinology) Diagnoses/Problems Assessed Hot flashes (782.62) (R23.2) Sellar or suprasellar mass (348.89) (G93.89) *Orders Sellar or suprasellar mass Adrenocorticotropic Hormone, Plasma; Status:Active; Requested for:28Jul2022; Perform:Lab Services - Lab To Draw (Blood Test); Due:[id number];Ordered; For:Sellar or suprasellar mass; Ordered By:Lamine Boone; Neurology - NeuroOphthalmology Referral Evaluation and Treatment Evaluate AND Treat Status: Active Requested for: 05Aug2022 Ordered;For: Sellar or suprasellar mass; Ordered By: Lamine Boone Performed: Due: [id number]; Last Updated By: Rose Garza; 08/06/2022 12:52:35 AM AMA Intake updated by [facility] (INTRANET) on 2022-08-03 22:03 New Recipient: Murray Holloway Appointment Date: 2022-08-05 09:15 AMA Intake Activity Log Entry by Dipesh Witt ([email or web address]) on 2022-08-01 13:22 Status Change: To Closed - Automated Email Cortisol A.M.; Status:Active; Requested for:28Jul2022; Perform:Lab Services - Lab To Draw (Blood Test); Due:[id number];Ordered; For:Sellar or suprasellar mass; Ordered By:Lamine Boone; DHEA Sulfate, Serum; Status:Active; Requested for:28Jul2022; Perform:Lab Services - Lab To Draw (Blood Test); Due:26Oct2022;Ordered; For:Sellar or suprasellar mass; Ordered By:Lamine Boone; FSH + LH; Status:Active; Requested for:28Jul2022; Perform:Lab Services - Lab To Draw (Blood Test); Due:26Oct2022;Ordered; For:Sellar or suprasellar mass; Ordered By:Lamine Boone; INSULIN-LIKE GROWTH FACTOR 1 + Z-SCORE; Status:Active; Requested for:28Jul2022; Perform:Lab Services - Lab To Draw (Blood Test); Due:02Aug2022;Ordered; For:Sellar or suprasellar mass; Ordered By:Lamine Boone; Osmolality, Urine Spot; Status:Active; Requested for:28Jul2022; Perform:Lab Services - Lab To Draw (Non-Blood Test); Due:26Oct2022;Ordered; For:Sellar or suprasellar mass; Ordered By:Lamine Boone; Prolactin, Serum; Status:Active; Requested for:28Jul2022; Perform:Lab Services - Lab To Draw (Blood Test); Due:26Oct2022;Ordered; For:Sellar or suprasellar mass; Ordered By:Lamine Boone; Renal Function Panel; Status:Active; Requested for:28Jul2022; Perform:Lab Services - Lab To Draw (Blood Test); Due:26Oct2022;Ordered; For:Sellar or suprasellar mass; Ordered By:Lamine Boone; T4 - Free Thyroxine, Serum; Status:Active; Requested for:28Jul2022; Perform:Lab Services - Lab To Draw (Blood Test); Due:26Oct2022;Ordered; For:Sellar or suprasellar mass; Ordered By:Lamine Boone; Testosterone Free + Total; Status:Active; Requested for:28Jul2022; Perform:Lab Services - Lab To Draw (Blood Test); Due:26Oct2022;Ordered; For:Sellar or suprasellar mass; Ordered By:Lamine Boone; TSH - Thyroid Stimulating Hormone, Serum; Status:Active; Requested for:[id number]; Perform:Lab Services - Lab To Draw (Blood Test); Due:08Sph7727;Ordered; For:Sellar or suprasellar mass; Ordered By:Lamine Boone; Sellar or suprasellar mass (348.89) (G93.89) Patient Discussion/Summary It was my pleasure to take care of you today in the office. Below are the things we discussed today: We will start by checking blood work Neuroophthalmology referral Dr. Holloway We will discuss with Dr. Santana when blood work is back Please Call Dr. Boone at [phone] with questions Follow up in 6 months Provider Impressions Mr. Yanes is a 47 year old M referred for evaluation of sellar mass Patient started having ear ache on the left with headache several month ago MRI sella done in February was reviewed showed a nonenhancing 1.2 cm mass in the center Hot flashes and sometimes night sweats. Energy lower and having trouble staying active ENT did not find anything wrong Headache: Every night at 7pm, left ear pain as if there's fluid. Behind the ear that improves with sleep. sinus pressure and sinus pressure. ENT started him on Triamterene-HCTZ Allergy meds for sinus headache Double vision: Eyes getting worse rapidly. last 6 months Energy: Drinks more coffee 2 cups in the morning and 1 cup after work. Usually very active. But now not able to workout as much declining over the past year Weight: Gaining a little bit of weight since not exercising. 10 lbs in 6 months Polyuria, polydipsia and Nocturia: Thirsty a lot, Drinks 24 ounces 3-4 during the day Low libido (getting worse over the last year) No morning erection for the past year Difficulty maintaining erection (For a while) Blood work done in April showed a DHEA-S of 155, ACTH of 19.8, with a free cortisol 0.22 mcg (normal) Prolactin was 7, I IGF-I was 184, free thyroxine was 1.07 and FSH was 5.5 Reports symptoms of hypogonadism No evidence of hormonal hypersecretion Plan We will repeat pituitary panel including testosterone FSH LH HPA axis evaluation and thyroid evaluation We will discuss further management with Dr. Santana after blood work is back Neuro ophthalmology referral Available labs and notes were personally reviewed Return to cli (more content not included)... Normal [facility] MRI KNEE LT WO CONon 022 MRI KNEE LT WO CON EXAMINATION: MRI KNE E LT WO CON HISTORY: Derangement of left knee ; acute left knee pain after triathlon COMPARISON: No relevant comparison available. TECHNIQUE: A complete multi-planar MRI was performed. FINDINGS: MEDIAL COMPARTMENT MEDIAL MENISCUS: No visible tear or significant degeneration. CARTILAGE: No visible defect. BONES: No marrow pathology, fracture, or significant arthropathy. MCL AND MEDIAL CAPSULE: Normal medial collateral ligament and medial capsule. LATERAL COMPARTMENT LATERAL MENISCUS: No visible tear or significant degeneration. CARTILAGE: No visible defect. BONES: No marrow pathology, fracture, or significant arthropathy. LCL/POSTEROLAT COMPLEX: Normal lateral collateral ligament, fascicles, lateral capsule and ligaments. ANTERIOR COMPARTMENT PATELLA: No marrow pathology, fracture, or significant arthropathy. CARTILAGE: No visible defect. TENDONS: Normal. EFFUSION: None. No synovitis or loose bodies. ACL: Normal appearing ligament. PCL: Normal appearing ligament. MENISCOFEMORAL: Normal meniscofemoral ligaments. OTHER: Negative. IMPRESSION: 1. No acute or appreciable degenerative changes to account for patient's symptoms. Normal examination. Electronically authenticated by: ORLANDO PUTNAM Date: 2022-05-20 15:25 Normal [facility] CORTISOL-FREE,SERUMon 2021 CORTISOL-FREE,SERUM 0.22 mcg/dL Normal [facility] Comment on above: Result Comment: Adul t Reference Ranges for Cortisol, MS, Free: . 8:00 - 10:00 AM 0.07-0.93 mcg/dL 4:00 - 6:00 PM 0.04-0.45 mcg/dL 10:00 - 11:00 PM 0.04-0.35 mcg/dL . This test was developed and its analytical performance characteristics have been determined by [facility]. It has not been cleared or approved by FDA. This assay has been validated pursuant to the CLIA regulations and is used for clinical purposes. Performed By: #### I [facility] #### [address] [address] GROWTH HORMONEon 05-14-2022 GROWTH HORMONE <0.05 Low 0.05-3.00 [facility] Comment on above: Result Comment: Perf ormed By: [address] [address] Irrigation District Manager: Sundeep Yancey MD, PhD Performed By: #### I LGF1 #### [address] [address] ACTHon 05-13-2022 ACTH 19.8 pg/mL Normal 7.2-63.3 [facility] Comment on above: Result Comment: INTE RPRETIVE INFORMATION: Adrenocorticotropic Hormone Reference interval based on samples collected between 7 a.m. and 10 a.m. No reference intervals established for p.m. collections. Pediatric reference values are the same as adults (Acta Paediatr Scand 1981;70:341-345). This assay measures intact ACTH 1-39; some types of synthetic ACTH and ACTH fragments are not detected by this assay. Performed By: [place] [address] Irrigation District Manager: Sundeep Yancey MD, PhD Performed By: #### I LGF1 #### [place] [id number] INSULIN-LIKE GROWTH FACTOR 1 + Z-SCOREon 05-13-2022 IGF 1 Z SCORE CALCULATION 1.0 Normal [facility] Comment on above: Result Comment: INTE RPRETIVE INFORMATION: IGF 1 Z-SCORE CALCULATION A Z score is the number of standard deviations a given result is above (positive score) or below (negative score) the age- and sex-adjusted population mean. Results that are within the IGF-1 reference interval will have a Z score between -2.0 and +2.0. Performed By: [place] [address] Irrigation District Manager: Sundeep Yancey MD, PhD Performed By: #### I LGF1 #### [address] [address] INSULIN-LIKE GROWTH FACTOR 184 ng/mL Normal 71-224 [facility] Comment on above: Performed By: #### I LGF1 #### [address] [address] Chart Updateon 05-11-2022 Chart Update Chart Update Basic endocrine labs all normal except a very mildly elevated calcium. Will await other results. Signatures Electronically signed by : Thompson Santana MD; May 11 2022 11:32AM EST (Author) [facility] Adrenocortic[facility] Hormone, Plasmaon 05-10-2022 Corticotropin (P) [Mass/Vol] 19.8 pg/mL 7.2-63.3 MG-Neurosurge Counts include 234 beds at the [facility] Work Phone: Comment on above: INTERPRETIVE INFORMA TION: Adrenocorticotropic HormoneReference interval based on samples collected between 7 a.m. and 10 a.m. No reference intervals established for p.m. collections. Pediatric reference values are the same as adults (Acta Paediatr Scand 1981;70:341-345). This assay measures intact ACTH 1-39; some types of synthetic ACTH and ACTH fragments are not detected by this assay.Performed By: [facility] [place] [address] [id number] Director: Sundeep Yancey MD, PhD BASIC METABOLIC PANELon 04-20 Anion gap [Moles/Vol] 14 mmol/L Normal 10 - 20 MG-Neurosurge Counts include 234 beds at the [facility] Work Phone: Comment on above: Performed By: #### I LGF1 #### [facility] [address] [place] [address] Calcium [Mass/Vol] 10.7 mg/dL High 8.6 - 10.6 MG-Micahel rosurge Counts include 234 beds at the [facility] Work Phone: Comment on above: Performed By: #### I LGF1 #### [facility] [address] [place] [address] Chloride [Moles/Vol] 101 mmol/L Normal 98 - 107 MG-N eurosurge Counts include 234 beds at the [facility] Work Phone: Comment on above: Performed By: #### I LGF1 #### [facility] [address] [place] [address] Creatinine [Mass/Vol] 0.95 mg/dL Normal 0.50 - 1.30 MG-Neurosurge Counts include 234 beds at the [facility] Work Phone: Comment on above: Reference Range: 0.5 0 - 1.30 Performed By: #### I LGF1 #### [facility] [address] [place] [address] eGFR MALE >90 Normal >90 [facility] Comment on above: Result Comment: CALC ULATIONS OF ESTIMATED GFR ARE PERFORMED USING THE 2020 CKD-EPI STUDY REFIT EQUATION WITHOUT THE RACE VARIABLE FOR THE IDMS-TRACEABLE CREATININE METHODS. https://jasn.asnjournals.org/content/early/ASN.6919546 988 Performed By: #### I LGF1 #### [facility] [address] [place] [address] Glucose [Mass/Vol] 98 mg/dL Normal 74 - 99 MG-Michael rosurge Counts include 234 beds at the [facility] Work Phone: Comment on above: Performed By: #### I LGF1 #### [facility] [address] [place] [address] HCO3 (Bld) [Moles/Vol] 29 mmol/L Normal 21 - 32 [facility] Comment on above: Performed By: #### I LGF1 #### [facility] [address] [place] [address] Potassium [Moles/Vol] 4.2 mmol/L Normal 3.5 - 5.3 MG-Neurosurge Counts include 234 beds at the [facility] Work Phone: Comment on above: Performed By: #### I LGF1 #### [facility] [address] [place] [address] Sodium [Moles/Vol] 140 mmol/L Normal 136 - 145 MG-Michael rosurge Counts include 234 beds at the [facility] Work Phone: Comment on above: Performed By: #### I LGF1 #### [facility] [address] [place] [address] Urea nitrogen [Mass/Vol] 13 mg/dL Normal 6 - 23 MG-Neurosurge Counts include 234 beds at the [facility] Work Phone: Comment on above: Performed By: #### I LGF1 #### [facility] [address] [place] [address] COAGULATION SCREENon 022 APTT Canceled Normal [facility] Comment on above: Order Comment: TEST COAGULATION SCREEN WAS CANCELLED, 05/10/2022 13:19 QNS, PLEASE RESUBMIT.. Result Comment: THE APTT IS NO LONGER USED FOR MONITORING UNFRACTIONATED HEPARIN THERAPY. FOR MONITORING HEPARIN THERAPY, USE THE HEPARIN ASSAY. Performed By: #### I LGF1 #### [facility] [address] [employer] [facility] [place] [facility] [place] [address] PROTHROMBIN TIME Canceled Normal [facility] Comment on above: Order Comment: TEST COAGULATION SCREEN WAS CANCELLED, 05/10/2022 13:19 QNS, PLEASE RESUBMIT.. Performed By: #### I LGF1 #### [facility] [address] [facility] [place] [facility] [place] [address] PT, INR Canceled Normal [facility] Comment on above: Order Comment: TEST COAGULATION SCREEN WAS CANCELLED, 05/10/2022 13:19 QNS, PLEASE RESUBMIT.. Performed By: #### I LGF1 #### [facility] [address] [place] [facility] [place] [address] Cortisol-Free, Serumon 05-10 Cortisol Free [Mass/Vol] 0.22 {mcg/dL} MG-Neurosurge ry-[facility] Work Phone: Comment on above: Adult Reference Rang es for Cortisol, MS, Free:. 8:00 - 10:00 AM 0.07-0.93 mcg/dL 4:00 - 6:00 PM 0.04-0.45 mcg/dL 10:00 - 11:00 PM 0.04-0.35 mcg/dL.This test was developed and its analytical performance characteristicshave been determined by [employer] [facility]. It has not been cleared or approved by FDA. This assay hasbeen validated pursuant to the CLIA regulations and is used forclinical purposes. DHEA SULFATEon 05-10-2022 DHEA SULFATE 155 ug/dL Normal 95 - 530 [facility] Comment on above: Result Comment: MATU RITY-BASED REFERENCE RANGES: PUBERTAL (KALPANA) STAGE MALE FEMALE I 5 - 265 5 - 125 II 15 - 380 15 - 150 III 60 - 505 20 - 535 IV 65 - 560 35 - 485 V 165 - 500 75 - 530 Biotin interference may cause falsely elevated results. Patients taking a Biotin dose of up to 5 mg/day should refrain from taking Biotin for 24 hours before sample collection. Providers may contact their local laboratory for further information. Performed By: #### D TOMY #### [facility] [address] [place] [address] DHEA Sulfate, Serumon 2021 DHEA-S [Mass/Vol] 155 ug/dL 95 - 530 MG-Neur osurge Counts include 234 beds at the [facility] Work Phone: Comment on above: MATURITY-BASED REFER ENCE RANGES: PUBERTAL (KALPANA) STAGE MALE FEMALE I 5 - 265 5 - 125 II 15 - 380 15 - 150 III 60 - 505 20 - 535 IV 65 - 560 35 - 485 V 165 - 500 75 - 530 Biotin interference may cause falsely elevated results. Patients taking a Biotin dose of up to 5 mg/day should refrain from taking Biotin for 24 hours before sample collection. Providers may contact their local laboratoryfor further information. FOLLICLE STIM. HORMONEon FOLLICLE STIM. HORMONE 5.5 IU/L Normal [facility] Comment on above: Result Comment: REF VALUES FOLLICULAR 2-12 MID-CYCLE 12-25 LUTEAL PHASE 2-12 MENOPAUSE 30-150 PREPUBERTY 50% ADULT ADULT MALE 2-10 INFANTS 0-1 Performed By: #### F #### [facility] [address] [place] [address] Follicle Stimulating Hormone , Serumon 05-10-2022 Follitropin Qn 5.5 {IU/L} MG-Neurosu rge Counts include 234 beds at the [facility] Work Phone: Comment on above: REF VALUESFOLLICULAR 2-29HDY-WCLIR 12-25LUTEAL PHASE 2-12MENOPAUSE 30-150PREPUBERTY 50% ADULTADULT MALE 2-10INFANTS 0-1 Human Growth Hormone, Serumo n 05-10-2022 Growth hormone-releasing hormone [Mass/Vol] <0.05 below low threshold 0.05-3.00 MG-Neurosurge Counts include 234 beds at the [facility] Work Phone: Comment on above: Performed By: MILLIE [address] [id number] Director: Sundeep Yancey MD, PhD INSULIN-LIKE GROWTH FACTOR 1 + Z-SCOREon 05-10-2022 Insulin-like growth factor-I [Mass/Vol] 184 ng/mL 71-224 MG-Neurosurg e Counts include 234 beds at the [facility] Work Phone: Initial Visit (Neurosurgery) on 05-10-2022 Initial Visit (Neurosurgery) Diagnoses/Problems 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) Sellar or suprasellar mass (348.89) (G93.89) Orders Sellar ependymoma of posterior pituitary gland Adrenocorticotropic Hormone, Plasma; Status:Active - Retrospective Authorization; Requested for:[id number]; Neurology - NeuroOphthalmology Referral Evaluation and Treatment Evaluate AND Treat Status: Hold For - Scheduling,Retrospective Authorization Requested for: 10May2022 Basic Metabolic Panel; Status:Active - Retrospective Authorization; Requested for:[id number]; Coagulation Screen; Status:Active - Retrospective Authorization; Requested for:[id number]; Cortisol-Free, Serum; Status:Active - Retrospective Authorization; Requested for:[id number]; DHEA Sulfate, Serum; Status:Active - Retrospective Authorization; Requested for:[id number]; Follicle Stimulating Hormone, Serum; Status:Active - Retrospective Authorization; Requested for:[id number]; Human Growth Hormone, Serum; Status:Active - Retrospective Authorization; Requested for:[id number]; INSULIN-LIKE GROWTH FACTOR 1 + Z-SCORE; Status:Active - Retrospective Authorization; Requested for:[id number]; Prolactin, Serum; Status:Active - Retrospective Authorization; Requested for:[id number]; T3 - Free Triiodothyronine, Serum; Status:Active - Retrospective Authorization; Requested for:[id number]; T4 - Free Thyroxine, Serum; Status:Active - Retrospective Authorization; Requested for:[id number]; Patient Discussion/Summary Mr. Yanes is a 47-year-old man with a several month history of left-sided headache and ear pain. He underwent radiological imaging which demonstrated the presence of a sellar mass. He also complains of increased lethargy and not having his usual stamina. The MRI of the sella from March 17 shows as nonenhancing 1.2 cm mass in the center of the gland. I believe we should obtain baseline endocrinological studies as well as a formal visual exam to determine the best optimal management. I will obtain a consult from my colleague Dr. Erwin Mondragon and reevaluate Mr. Yanes after we have the results of these consultations. Provider Impressions Mr. Yanes is a 47-year-old man with a several month history of left-sided headache and ear pain. He underwent radiological imaging which demonstrated the presence of a sellar mass. He also complains of increased lethargy and not having his usual stamina. The MRI of the sella from March 17 shows as nonenhancing 1.2 cm mass in the center of the gland. I believe we should obtain baseline endocrinological studies as well as a formal visual exam to determine the best optimal management. I will obtain a consult from my colleague Dr. Erwin Mondragon and reevaluate Mr. Yanes after we have the results of these consultations. Chief Complaint Patient is being seen for an initial Neurosurgical evaluation and Sellar mass. History of Present Illness Mr. Yanes is a 47-year-old man with a several month history of left-sided headache and ear pain. He underwent radiological imaging which demonstrated the presence of a sellar mass. He also complains of increased lethargy and not having his usual stamina. 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) Physical Exam Pt is alert and oriented with normal affect no acute distress, well developed man appearing his stated age gait and station normal normal sclera moist mucus membranes no peripheral edema symmetric chest rise nondistended abdomen extraocular movements intact full strength in all extremities normal sensation throughout no dysmetria Signatures Electronically signed by : Thompson Santana MD; May 10 2022 11:04AM EST (Author) Normal [facility] - Chemistry and C hemistry - challengeon 05-10-2022 CO2 [Moles/Vol] 29 mmol/L 21 - 32 MG-Neuros urge Counts include 234 beds at the [facility] Work Phone: Laboratory - Coagulationon 0 05-10-2022 aPTT Coag (PPP) [Time] Canceled MG-Neurosurge Counts include 234 beds at the [facility] Work Phone: Comment on above: THE APTT IS NO LONGE R USED FOR MONITORING UNFRACTIONATED HEPARIN THERAPY. FOR MONITORING HEPARIN THERAPY, USE THE HEPARIN ASSAY. INR Coag (PPP) [Relative time] Canceled MG-Neurosurge Counts include 234 beds at the [facility] Work Phone: PT Coag (PPP) [Time] Canceled MG-N eurosurge Counts include 234 beds at the [facility] Work Phone: No Panel Informationon 05-10 >90 >90 MG-Neurosurge Counts include 234 beds at the [facility] Work Phone: Comment on above: CALCULATIONS OF YOMI MATED GFR ARE PERFORMED USING THE 2020 CKD-EPI STUDY REFIT EQUATION WITHOUT THE RACE VARIABLE FOR THE IDMS-TRACEABLE CREATININE METHODS.https://jasn.asnjournals.org/content/early//ASN .3867495237 PROLACTINon 05-10-2022 PROLACTIN 7.0 ug/L Normal 2.0 - 18.0 [facility] Comment on above: Performed By: #### P ROL #### [facility] [address] [place] [address] Prolactin, Serumon 2 Prolactin [Mass/Vol] 7.0 ug/L 2.0 - 18.0 MG-N eurosurge Counts include 234 beds at the [facility] Work Phone: T3 - Free Triiodothyronine, Serumon 05-10-2022 Free T3 [Mass/Vol] 3.5 pg/mL 2.3 - 4.2 MG-Michael rosurge Counts include 234 beds at the [facility] Work Phone: T4 - Free Thyroxine, Serumon 05-10-2022 Free T4 [Mass/Vol] 1.07 ng/dL See Below MG-Michael rosurge Counts include 234 beds at the [facility] Work Phone: Comment on above: Reference Range: 0.7 8 - 1.48 Thyroxine Free testing is performed using different testing methodology at [facility] than at other [facility]. Direct result comparisons should only be made within the same method. THYROXINE,FREEon 05-10-2022 THYROXINE,FREE 1.07 ng/dL Normal 0.78 - 1.48 [facility] Comment on above: Result Comment: Thyr oxine Free testing is performed using different testing methodology at [facility] than at other [facility]. Direct result comparisons should only be made within the same method. Performed By: #### I LGF1 #### [facility] [address] [facility] [place] [facility] [place] [address] TRIIODOTHYRONINE,FREEon 04-20 TRIIODOTHYRONINE,THOMAS E 3.5 pg/mL Normal 2.3 - 4.2 [facility] Comment on above: Performed By: #### I LGF1 #### [facility] [address] [facility] [place] [facility] [place] [address] Tobacco Screening.on 022 Fall risk assessment a) No falls within the last year MG-Neurosurge Counts include 234 beds at the [facility] Work Phone: Tobacco use status CPHS b) No -Neurosurge Counts include 234 beds at the [facility] Work Phone: MRI PITUITARY WO W CONon MRI PITUITARY WO W CON EXAMINATION: MRI PITUITARY WO W CON HISTORY: Disorder of pituitary gland COMPARISON: 02/01/2022 TECHNIQUE: A variety of imaging planes and parameters were utilized for visualization of suspected pathology. Images were performed without and with 20 ml intravenous Dotarem contrast. FINDINGS: PITUITARY: Pituitary gland is enlarged in size. Centrally within the pituitary gland is a focal 1.1 x 1.2 x 1.1 cm area of hypointensity which does not demonstrate postcontrast enhancement. This area measures 2600 units on precontrast imaging and 2100 units on postcontrast imaging. Peripheral enhancement is observed likely representing displaced normal pituitary gland. BRAIN: Limited views of the included areas are unremarkable. SINUSES: Limited views of the included areas demonstrate no significant mucosal thickening or fluid. ORBITS: Limited views are unremarkable. OTHER: Negative. IMPRESSION: Nonenhancing 1.2 cm pituitary mass. 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 The differential diagnosis does include infarcted mass or large blood vessel, but these are much less likely Electronically authenticated by: YANCI GUILLEN Date: 2022-03-17 17:48 Normal [facility] XR FOREIGN BODY EYEon 2021 XR FOREIGN BODY EYE EXAMINATION: XR FORE IGN BODY EYE HISTORY: Foreign body in eye COMPARISON: No relevant comparison available. FINDINGS: ORBITS: Negative for a metallic foreign body. OTHER: Negative. IMPRESSION: 1. No metallic foreign body within the orbits. Electronically authenticated by: ORLANDO PUTNAM Date: 2022-02-01 13:41 Normal [facility] Vital Signs Date Time Vital Sign Value Performing Clinician Soraida chatterjee 05-28-2024 09:56-0400 Blood Pressure Location [facility] [place] 05-28-2024 09:56-0400 Diastolic blood pressure 93 mm[Hg] [facility]an [facility] 05-28-2024 09:56-0400 Heart rate 69 /min Karan [facility] 05-28-2024 09:56-0400 Respiratory rate 16 /min Karan [facility] [place] 05-28-2024 09:56-0400 Systolic blood pressure 132 mm[Hg] Karan [facility] 04-02-2024 09:23-0400 Body height 185.42 cm [facility] 04-02-2024 09:23-0400 Body mass index (BMI) [Ratio] 29.1 kg/m2 [facility] 04-02-2024 09:23-0400 Body temperature 97 [degF] [facility] 04-02-2024 09:23-0400 Body weight 100.24 kg [facility] 04-02-2024 09:23-0400 Diastolic blood pressure 95 mm[Hg] [facility] 04-02-2024 09:23-0400 Heart rate 74 /min [facility] 04-02-2024 09:23-0400 Respiratory rate 20 /min [facility] 04-02-2024 09:23-0400 SaO2% (BldA) [Mass fraction] 96 % [facility] 04-02-2024 09:23-0400 Systolic blood pressure 128 mm[Hg] [facility] 10-03-2023 09:30-0500 Body height 185.42 cm Jonny Crawfordsa Other [facility] Other 10-03-2023 09:30-0500 Body mass index (BMI) [Ratio] 27.97 kg/m2 [employer]ny [employer] Other [facility] Other 10-03-2023 09:30-0500 Body temperature 98.4 [degF] Jonny Samsa Other [facility] Other 10-03-2023 09:30-0500 Body weight 96.16 kg Jonny Samsa Other [facility] Other 10-03-2023 09:30-0500 Diastolic blood pressure 92 mm[Hg] Jonny Samsa Other [facility] Other 10-03-2023 09:30-0500 Respiratory rate 20 /min Jonny [employer] Other [facility] Other 10-03-2023 09:30-0500 SaO2% (BldA) [Mass fraction] 95 % Jonny Samsa Other [facility] Other 10-03-2023 09:30-0500 Systolic blood pressure 128 mm[Hg] Jonny Samsa Other [facility] Other 08-29-2023 15:30-0500 Body height 185.42 cm Sean Fishman Other [facility] Other 08-29-2023 15:30-0500 Body mass index (BMI) [Ratio] 28.39 kg/m2 Sean Fishman Other [facility] Other 08-29-2023 15:30-0500 Body weight 97.61 kg Sean Fishman Other [facility] Other 08-29-2023 15:30-0500 Diastolic blood pressure 92 mm[Hg] Sean Fishman Other [facility] Other 08-29-2023 15:30-0500 Systolic blood pressure 130 mm[Hg] Sean Fishman Other [facility] Other 07-04-2023 09:15-0400 Body height 185.42 cm Eugenio Dixon Other [facility] Other 07-04-2023 09:15-0400 Body mass index (BMI) [Ratio] 27.44 kg/m2 Keer Zack Other [facility] Other 07-04-2023 09:15-0400 Body temperature 97.6 [degF] Keer Zakc Other [facility] Other 07-04-2023 09:15-0400 Body weight 94.35 kg Keer Zack Other [facility] Other 07-04-2023 09:15-0400 Diastolic blood pressure 90 mm[Hg] Keer Zack Other [facility] Other 07-04-2023 09:15-0400 Respiratory rate 20 /min Christopher Zack Other [facility] Other 07-04-2023 09:15-0400 SaO2% (BldA) [Mass fraction] 97 % Christopher Zack Other [facility] Other 07-04-2023 09:15-0400 Systolic blood pressure 132 mm[Hg] Christopher Zack Other [facility] Other 03-03-2023 10:30-0400 Body height 185.42 cm Christopher Zack Other [facility] Other 03-03-2023 10:30-0400 Body mass index (BMI) [Ratio] 28.1 kg/m2 Christopher Zack Other [facility] Other 03-03-2023 10:30-0400 Body weight 96.62 kg Christopher Zack Other [facility] Other 03-03-2023 10:30-0400 Diastolic blood pressure 84 mm[Hg] Christopher Zack Other [facility] Other 03-03-2023 10:30-0400 Respiratory rate 20 /min Christopher Zack Other [facility] Other 03-03-2023 10:30-0400 SaO2% (BldA) [Mass fraction] 98 % Christopher Zack Other [facility] Other 03-03-2023 10:30-0400 Systolic blood pressure 132 mm[Hg] Eugenio Campono Other [facility] Other 02-28-2023 15:45-0400 Body height 185.42 cm Sean Fishman Other [facility] Other 02-28-2023 15:45-0400 Body mass index (BMI) [Ratio] 28.76 kg/m2 Sean Fishman Other [facility] Other 02-28-2023 15:45-0400 Body weight 98.88 kg Sean Fishman Other [facility] Other 02-28-2023 15:45-0400 Diastolic blood pressure 84 mm[Hg] Sean Fishman Other [facility] Other 02-28-2023 15:45-0400 SaO2% (BldA) [Mass fraction] 97 % Sean Fishman Other [facility] Other 02-28-2023 15:45-0400 Systolic blood pressure 128 mm[Hg] Sean Fishman Other [facility] Other 12-29-2022 09:36-0400 Body height 185.42 cm Sean Fishman Work Phone: [facility] [address] Work Phone: 12-29-2022 09:36-0400 Body mass index (BMI) [Ratio] 28.5 kg/m2 Sean Fishman Work Phone: [facility] [address] Work Phone: 12-29-2022 09:36-0400 Body surface area Derived from formula 2.22 m2 Sean Fishman Work Phone: [facility] [address] DO Work Phone: 12-29-2022 09:36-0400 Body weight 97.98 kg Sean Fishman Work Phone: [facility] [address] DO Work Phone: 12-29-2022 09:36-0400 Diastolic blood pressure 86 mm[Hg] Sean Fishman Work Phone: [facility] [address] DO Work Phone: 12-29-2022 09:36-0400 Heart rate 72 /min Sean Fishman Work Phone: [facility] [address] DO Work Phone: 12-29-2022 09:36-0400 Systolic blood pressure 136 mm[Hg] Sean Fishman Work Phone: [facility] [address] DO Work Phone: 12-29-2022 08:37-0400 Body height 185.42 cm Sean Fishman Work Phone: [facility] [address] DO Work Phone: 12-29-2022 08:37-0400 Body mass index (BMI) [Ratio] 28.5 kg/m2 Sean Fishman Work Phone: [facility] [address] Work Phone: 12-29-2022 08:37-0400 Body surface area Derived from formula 2.22 m2 Sean Fishman Work Phone: [facility] [address] DO Work Phone: 12-29-2022 08:37-0400 Body weight 97.98 kg Sean Fishman Work Phone: [facility] [address] DO Work Phone: 12-29-2022 08:37-0400 Diastolic blood pressure 96 mm[Hg] Sean Fishman Work Phone: [facility] [address] DO Work Phone: 12-29-2022 08:37-0400 Heart rate 72 /min Sean Fishman Work Phone: [facility] [address] DO Work Phone: 12-29-2022 08:37-0400 Systolic blood pressure 136 mm[Hg] Sean Fishman Work Phone: [facility] [address] DO Work Phone: 12-14-2022 10:40-0400 Heart rate 80 /min Sean Fishman Work Phone: [facility] 250 DO Work Phone: 12-14-2022 10:39-0400 Diastolic blood pressure 86 mm[Hg] Sean Fishman Work Phone: [facility] 250 DO Work Phone: 12-14-2022 10:39-0400 Systolic blood pressure 130 mm[Hg] Sean Fishman Work Phone: [facility] 250 DO Work Phone: 12-14-2022 10:38-0400 Body height 185.42 cm Sean Fishman Work Phone: [facility] 250 DO Work Phone: 12-14-2022 10:38-0400 Body mass index (BMI) [Ratio] 28.23 kg/m2 Sean Fishman Work Phone: [facility] [address] DO Work Phone: 12-14-2022 10:38-0400 Body surface area Derived from formula 2.21 m2 Sean Fishman Work Phone: [facility] 250 DO Work Phone: 12-14-2022 10:38-0400 Body weight 97.07 kg Sean Fishman Work Phone: [facility] [employer] 250 DO Work Phone: 12-14-2022 10:38-0400 Diastolic blood pressure 88 mm[Hg] Sean Fishman Work Phone: [facility] [employer] 250 DO Work Phone: 12-14-2022 10:38-0400 Systolic blood pressure 134 mm[Hg] Sean Fishman Work Phone: [facility] [employer] 250 DO Work Phone: 11-16-2022 15:30-0500 Body height 185.42 cm Sean Fishman Other [facility] Other 11-16-2022 15:30-0500 Body mass index (BMI) [Ratio] 28.36 kg/m2 Sean Fishman Other [facility] Other 11-16-2022 15:30-0500 Body weight 97.52 kg Sean Fishman Other [facility] Other 11-16-2022 15:30-0500 Diastolic blood pressure 80 mm[Hg] Sean Fishman Other [facility] Other 11-16-2022 15:30-0500 SaO2% (BldA) [Mass fraction] 97 % Sean Fishman Other [facility] Other 11-16-2022 15:30-0500 Systolic blood pressure 126 mm[Hg] Sean Fishman Other [facility] Other 07-28-2022 10:04-0500 Body mass index (BMI) [Ratio] 27.71 kg/m2 Sean Fishman Work Phone: ZY-Dwljdveq-Oemvyas [place] Work Phone: 07-28-2022 10:04-0500 Body surface area Derived from formula 2.2 m2 Sean Fishman Work Phone: LS-Tlfjpqlu-Ecjqllt [place] Work Phone: 07-28-2022 10:04-0500 Body temperature 96.8 [degF] Sean Fishman Work Phone: HR-Elevaqch-Bqtfuqa [place] Work Phone: 07-28-2022 10:04-0500 Body weight 95.26 kg Sean Fishman Work Phone: OX-Czxpmvid-Lgzampd [place] Work Phone: 07-28-2022 10:04-0500 Diastolic blood pressure 94 mm[Hg] Sean Fishman Work Phone: MR-Fekktnov-Jyywtra [place] Work Phone: 07-28-2022 10:04-0500 Heart rate 79 /min Sean Fishman Work Phone: HA-Uatsauxm-Mrziruc [place] Work Phone: 07-28-2022 10:04-0500 Respiratory rate 16 /min Sean Fishman Work Phone: ED-Abmpxoqv-Hycbesv [place] Work Phone: 07-28-2022 10:04-0500 SaO2% (BldA) [Mass fraction] 96 % Sean Fishman Work Phone: ZX-Mmcrwric-Vxxepyl [place] Work Phone: 07-28-2022 10:04-0500 Systolic blood pressure 137 mm[Hg] Sean Fishman Work Phone: OP-Aytzqdka-Qhpnvjq [place] Work Phone: 05-10-2022 10:17-0400 Body height 185.42 cm Sean Fishman Work Phone: SM-Nvznzxkwxkbu-VRKJ C Work Phone: 05-10-2022 10:17-0400 Body mass index (BMI) [Ratio] 27.97 kg/m2 Sean Fishman Work Phone: PY-Xkvyxveiqpsi-EGCD C Work Phone: 05-10-2022 10:17-0400 Body surface area Derived from formula 2.21 m2 Sean Fishman Work Phone: XT-Krzeygeitmmg-XTHQ C Work Phone: 05-10-2022 10:17-0400 Body temperature 98.1 [degF] Sean Fishman Work Phone: CE-Qinxvzgfbrft-TFIU C Work Phone: 05-10-2022 10:17-0400 Body weight 96.16 kg Sean Fishman Work Phone: UF-Sekfysuvwvee-IDBW C Work Phone: 05-10-2022 10:17-0400 Diastolic blood pressure 103 mm[Hg] Sean Fishman Work Phone: WE-Hoycvmlevavx-EGLD C Work Phone: 05-10-2022 10:17-0400 Heart rate 72 /min Sean Fishman Work Phone: KW-Itpepqtntehw-LTEZ C Work Phone: 05-10-2022 10:17-0400 Respiratory rate 17 /min Sean Fishman Work Phone: KK-Kffczlenghzh-XPHZ C Work Phone: 05-10-2022 10:17-0400 SaO2% (BldA) [Mass fraction] 98 % Sean Fishman Work Phone: EX-Oqoyocskpdyz-ZXDN C Work Phone: 05-10-2022 10:17-0400 Systolic blood pressure 138 mm[Hg] Sean Fishman Work Phone: MN-Xoqkjirlpjyt-CZDL C Work Phone: Encounters Encounter Date Encounter Type Care Provider Facility Start: 07-30-2024 ambulatory Karan CRISTINA [facility] [place] Start: 05-28-2024 ambulatory Karan CRISTINA Facili ty:[facility] [place] Start: 05-28-2024 End: 05-28-2024 Patient encounter procedure Karan CRISTINA [facility] Start: 04-02-2024 End: 04-02-2024 ambulatory [facility] Work Phone: Start: 04-02-2024 End: 04-02-2024 Patient encounter procedure [facility] Physician [facility] Work Phone: Start: 10-03-2023 End: 10-03-2023 ambulatory Jonny Arteaga Other [facility] Other Start: 10-03-2023 Office outpatient vi sit 25 minutes Jonny Arteaga [facility] Start: 09-15-2023 End: 09-15-2023 ambulatory Sean Fishman Other [facility] Other Start: 09-15-2023 Telephone encounter Sean Fishman [facility] Start: 08-29-2023 End: 08-29-2023 ambulatory Sean Fishman Other [facility] Other Start: 08-29-2023 Encounter for genera l adult medical examination without abnormal findings Sean Fishman [facility] Start: 08-29-2023 Periodic preventive med est patient 40-64yrs Sean Fishman [facility] Start: 07-04-2023 End: 07-04-2023 ambulatory Eugenio Dixon Other [facility] Other Start: 07-04-2023 Office outpatient vi sit 25 minutes Eugenio Dixon [facility] Start: 06-07-2023 End: 06-07-2023 ambulatory Sean Fishman Other [facility] Other Start: 06-07-2023 Nursing evaluation o f patient and report Sean Fishman [facility] Start: 03-15-2023 End: 03-15-2023 ambulatory MD Dakota Leslie Work Phone: [facility] Work Phone: Start: 03-15-2023 End: 03-15-2023 Patient encounter procedure MD Dakota Leslie Work Phone: [facility]Sleep Lab Work Phone: Start: 03-14-2023 End: 03-14-2023 ambulatory Eugenio Dixon Facility:[facility] Start: 03-14-2023 End: 03-14-2023 ambulatory MD Dakota Leslie Work Phone: [facility] Work Phone: Start: 03-14-2023 End: 03-14-2023 Patient encounter procedure MD Dakota Leslie Work Phone: [facility]CT [facility] [place] Work Phone: Start: 03-03-2023 End: 03-03-2023 ambulatory Eugenio Dixon Other [facility] Other Start: 03-03-2023 Office outpatient ne w 45 minutes Eugenio Dixon [facility] Start: 02-28-2023 End: 02-28-2023 ambulatory Sean Fishman Other [facility] Other Start: 02-28-2023 Office outpatient vi sit 15 minutes Sean Fishman [facility] Start: 02-28-2023 Telephone encounter Sean Fishman [facility] Start: 12-29-2022 Office outpatient vi sit 25 minutes Sean Fishman Work Phone: [facility] 600 DO Work Phone: Start: 12-29-[address] Dakota Leslie Facility: Start: 12-24-2022 Chart Update Sean Fishman Work Phone: [facility] 250 DO Work Phone: Start: 12-21-2022 End: 12-21-2022 ambulatory Dakota Leslie Facility:[facility] Start: 12-21-2022 End: 12-21-2022 ambulatory MD Dakota Leslie Work Phone: [facility] Work Phone: Start: 12-21-2022 End: 12-21-2022 Patient encounter procedure MD Dakota Leslie Work Phone: [facility]-Respiratory Therapy Work Phone: Start: 12-20-2022 Chart Update Sean Fishman Work Phone: [facility] 250 DO Work Phone: Start: 12-20-2022 End: 12-20-2022 ambulatory Dakota Leslie Facility:[facility] Start: 12-20-2022 End: 12-20-2022 ambulatory MD Dakota Leslie Work Phone: [facility] Work Phone: Start: 12-20-2022 End: 12-20-2022 Patient encounter procedure MD Dakota Leslie Work Phone: [facility]-Electrodiagnostics Work Phone: Start: 12-20-[address] Sean Fishman Facility:[id number] Start: 12-20-[address] Sean Fishman Facility:[id number] Start: 12-14-2022 Office consultation new/estab patient 60 min Sean Fishman Work Phone: [facility] 250 DO Work Phone: Start: 12-14-[address] Dakota Leslie II Facility: Start: 12-09-2022 End: 12-09-2022 ambulatory Sean Fishman Other [facility] Other Start: 12-09-2022 Telephone encounter Sean Fishman [facility] Start: 11-30-2022 End: 12-01-[address] SEAN FISHMAN Facility: Start: 11-18-2022 End: 11-18-2022 ambulatory Sean Fishman Other [facility] Other Start: 11-18-2022 Telephone encounter Sean Fishman [facility] Start: 11-17-2022 End: 11-18-[address] SEAN FISHMAN Facility: Start: 11-16-2022 End: 11-16-2022 ambulatory Sean Fishman Other [facility] Other Start: 11-16-2022 Office outpatient vi sit 15 minutes Sean Fishman [facility] Start: 09-06-2022 Chart Update Sean Fishman Work Phone: ED-Vhxkjavoyoyco-Jactx as [place] Work Phone: Start: 08-05-2022 NPVNEURO, Provider: Murray Holloway, Status: Pen, Time: 9:15 AM Sean Fishman Work Phone: [facility] Work Phone: Start: 08-05-2022 Patient encounter procedure Sean Fishman Work Phone: OU-Nrzfhxmmxxhyr-Pixns ll 3200 Work Phone: Start: 08-05-2022 ambulatory Murray Holloway Facility :[id number] Start: 07-28-2022 Current tobacco non-user cad cap copd pv dm Sean Fishman Work Phone: CB-Vnwyubrz-Dkmglnp [place] Work Phone: Start: 07-28-2022 ambulatory Thompson Santana Facility: [facility] Start: 05-20-2022 End: 05-21-2022 ambulatory MR JOSSUE VASQUEZ . Facility: Start: 05-19-2022 Chart Update Sean Fishman Work Phone: ZH-Ahpmtpfqtobf-SIARN Work Phone: Start: 05-11-2022 Chart Update Sean Fishman Work Phone: ET-Aqwsssfgmpic-XZLUC Work Phone: Start: 05-10-2022 Office outpatient ne w 30 minutes Sean Fishman Work Phone: [facility] Work Phone: Start: 05-10-2022 ambulatory Thompson Santana Facility: [facility] Start: 03-17-2022 End: 03-18-[address] PAUL JEFFREY Facility: Start: 02-01-2022 End: 02-02-[address] PAUL JEFFREY Facility: Start: 12-19-2021 Adult health examination Sean Fishman Other [facility] Other Procedures Date Procedure Procedure Detail Performing Clinician Start: 03-14-2023 CT angiography of thorax MD Dakota Leslie Work Phone: Start: 12-20-2022 Plain chest X-ray MD Claudine Leslie Work Phone: Start: 08-13-2019 Cystoscope, device (physical object) Karan CRISTINA Start: 04-29-2011 Prostatotomy by transurethral approach Karan CRISTINA Start: 02-25-2011 Urodynamic studies Te CRISTINA Start: 03-20-2010 Cystoscopy Karan EPPS Start: 08-22-2008 H/O: vasectomy Karan CRISTINA Start: 08-19-2008 Excision of varicocele Karan CRISITNA Operative procedure on knee Sean Fishman Work Phone: Urodynamic studies Karan YE Vasectomy Sean Fishman Work Phone: Viral screening Sean Fishman Other Viral screening Sean Fishman Other Plan of Treatment Date Care Activity Detail Author Start: 07-14-2023 FUV, Provider: Dakota Leslie, Status: Pen, Time: 8:30 AM FUV, Provider: Dakota Leslie, Status: Pen, Time: 8:30 AM [facility] 600 DO Work Phone: Start: 03-14-2023 [facility] Start: 02-03-2023 EPVNEURO, Provider: Murray Holloway, Status: Pen, Time: 10:00 AM EPVNEURO, Provider: Murray Holloway, Status: Pen, Time: 10:00 AM GH-Iaawsrafsujmm-Rofenm l 3200 Work Phone: Start: 12-29-2022 FUV, Provider: Dakota Leslie, Status: Pen, Time: 8:50 AM FUV, Provider: Dakota Leslie, Status: Pen, Time: 8:50 AM [facility] 250 DO Work Phone: Start: 12-20-2022 SURGNONUH, Provider: Dakota Menjivar, Status: Pen, Time: 3:00 PM SURGNONUH, Provider: Dakota Menjivar, Status: Pen, Time: 3:00 PM -[facility] 250 DO Work Phone: Start: 07-28-2022 NPV, Provider: Lamine Boone, Status: Pen, Time: 10:00 AM NPV, Provider: Lamine Boone, Status: Pen, Time: 10:00 AM XQ-Cpuiwiimzfoh-ONZZI Work Phone: Homogenous nuclear A b pattern [Titer] in Serum [facility] Nuclear Ab [Titer] i n Serum [facility] Immunizations Immunization Date Immunization Notes Care Provider Fa cility 09-15-2021 Moderna COVID-19 Vac cine 100 MCG/0.5ML Intramuscular Suspension Sean Fishman Work Phone: [facility] Comment on above: Result Comment: 2023: [id number] 01-12-2021 Moderna COVID-19 Vac cine 100 MCG/0.5ML Intramuscular Suspension Sean Mclaughlin Fishman Work Phone: [facility] Comment on above: Result Comment: 2023: 40 12-15-2020 Moderna COVID-19 Vac cine 100 MCG/0.5ML Intramuscular Suspension Sean Mclaughlin Kye Work Phone: [facility] 06-23-2017 tetanus toxoid, redu samuel diphtheria toxoid, and acellular pertussis vaccine, adsorbed Sean Lissette Fishman Work Phone: [facility] 03-01-2017 hepatitis A vaccine, adult dosage Sean Mclaughlin Kye Work Phone: [facility] Payers Date Payer Category Payer Self-pay 1975 Unknown [id number] 2.16.84 [id number] 1975 Unknown [id number] 2.16.84 [id number] 1975 Unknown [id number] 2.16.84 [id number] 1975 Unknown [id number] 2.16.84 [id number] 1975 Unknown [id number] 2.16.84 [id number] 1975 Unknown [id number] 2.16. [id number] 1975 Unknown [id number] 2.16. [id number] 1975 Unknown [id number] 2.16. [id number] 1975 Unknown [id number] 2.16. [id number] 1975 Unknown [id number] 2.16. [id number] 1975 Unknown [id number] 2.16. [id number] 1975 Unknown [id number] 2.16. [id number] 1975 Unknown [id number] 2.16.8 [id number] 1975 Unknown [id number] 2.16.8 40.1.648150.3.579.2.727 1959 Unknown [id number] 2. [id number] Unknown Unknown [id number] Unknown [id number] 2.16.8 [id number] Unknown [id number] 2.16.8 [id number] Unknown [id number] 2.16.8 [id number] Unknown [id number] 2.16.8 [id number] Social History Date Type Detail Facility Unknown if ever smoked [facility] Other Sex Assigned At [facility] Caffeine use Caffeine use -[facility] 250 DO Work Phone: Start: 1975 Sex Assigned At Male F [facility] Start: 04-02-2024 End: 05-28-2024 Tobacco smoking status NHIS Ex-smoker (finding) [facility] Tobacco smoking status Never [facility] Functional Status Date Assessment Result Facility 05-28-2024 Functional Status N/A [facility] 08-13-2022 IGF ZSCORE CALCULATION IGF ZSCOR E CALCULATION 0.0 AW-Dqkwriqyzmydx-Shx glas Pedroza Work Phone: Comment on above: INTERPRETIVE INFORMA TION: IGF 1 Z-SCORE CALCULATIONA Z score is the number of standard deviations a given result is above (positive score) or below (negative score) the age- and sex-adjusted population mean. Results that are within the IGF-1 reference interval will have a Z score between -2.0 and +2.0.Performed By: [facility] [place], [place] [address]Sawxbvlexx Director: Sundeep Yancey MD, PhD 05-10-2022 IGF ZSCORE CALCULATION IGF ZSCOR E CALCULATION 1.0 BO-Czlqhkzifgjf-ZTCB C Work Phone: Comment on above: INTERPRETIVE INFORMA TION: IGF 1 Z-SCORE CALCULATIONA Z score is the number of standard deviations a given result is above (positive score) or below (negative score) the age- and sex-adjusted population mean. Results that are within the IGF-1 reference interval will have a Z score between -2.0 and +2.0.Performed By: [facility] [place], [place] [address]Pyhpamsioe Director: Sundeep Yancey MD, PhD Clinical Notes 02-01-2022 to 05-28-2024 Note Date & Type Note Facility 05-28-2024 Hospital Discharge instructions Patient Education 05/28/2024 08:30:17 Benign Prostatic Hyperplasia Benign Prostatic Hyperplasia Benign prostatic hyperplasia (BPH) is an enlarged prostate gland that is caused by the normal aging process. The prostate may get bigger as a man gets older. The condition is not caused by cancer. The prostate is a walnut-sized gland that is involved in the production of semen. It is located in front of the rectum and below the bladder. The bladder stores urine. The urethra carries stored urine out of the body. An enlarged prostate can press on the urethra. This can make it harder to pass urine. The buildup of urine in the bladder can cause infection. Back pressure and infection may progress to bladder damage and kidney (renal) failure. What are the causes? This condition is part of the normal aging process. However, not all men develop problems from this condition. If the prostate enlarges away from the urethra, urine flow will not be blocked. If it enlarges toward the urethra and compresses it, there will be problems passing urine. What increases the risk? This condition is more likely to develop in men older than 50 years. What are the signs or symptoms? Symptoms of this condition include: Getting up often during the night to urinate. Needing to urinate frequently during the day. Difficulty starting urine flow. Decrease in size and strength of your urine stream. Leaking (dribbling) after urinating. Inability to pass urine. This needs immediate treatment. Inability to completely empty your bladder. Pain when you pass urine. This is more common if there is also an infection. Urinary tract infection (UTI). How is this diagnosed? This condition is diagnosed based on your medical history, a physical exam, and your symptoms. Tests will also be done, such as: A post-void bladder scan. This measures any amount of urine that may remain in your bladder after you finish urinating. A digital rectal exam. In a rectal exam, your health care provider checks your prostate by putting a lubricated, gloved finger into your rectum to feel the back of your prostate gland. This exam detects the size of your gland and any abnormal lumps or growths. An exam of your urine (urinalysis). A prostate specific antigen (PSA) screening. This is a blood test used to screen for prostate cancer. An ultrasound. This test uses sound waves to electronically produce a picture of your prostate gland. Your health care provider may refer you to a specialist in kidney and prostate diseases (urologist). How is this treated? Once symptoms begin, your health care provider will monitor your condition (active surveillance or watchful waiting). Treatment for this condition will depend on the severity of your condition. Treatment may include: Observation and yearly exams. This may be the only treatment needed if your condition and symptoms are mild. Medicines to relieve your symptoms, including: ?Medicines to shrink the prostate. ?Medicines to relax the muscle of the prostate. Surgery in severe cases. Surgery may include: ?Prostatectomy. In this procedure, the prostate tissue is removed completely through an open incision or with a laparoscope or robotics. ?Transurethral resection of the prostate (TURP). In this procedure, a tool is inserted through the opening at the tip of the penis (urethra). It is used to cut away tissue of the inner core of the prostate. The pieces are removed through the same opening of the penis. This removes the blockage. ?Transurethral incision (TUIP). In this procedure, small cuts are made in the prostate. This lessens the prostate's pressure on the urethra. ?Transurethral microwave thermotherapy (TUMT). This procedure uses microwaves to create heat. The heat destroys and removes a small amount of prostate tissue. ?Transurethral needle ablation (TUNA). This procedure uses radio frequencies to destroy and remove a small amount of prostate tissue. ?Interstitial laser coagulation (ILC). This procedure uses a laser to destroy and remove a small amount of prostate tissue. ?Transurethral electrovaporization (TUVP). This procedure uses electrodes to destroy and remove a small amount of prostate tissue. ?Prostatic urethral lift. This procedure inserts an implant to push the lobes of the prostate away from the urethra. Follow these instructions at home: Take zzcu-ohp-qvviqfm and prescription medicines only as told by your health care provider. Monitor your symptoms for any changes. Contact your health care provider with any changes. Avoid drinking large amounts of liquid before going to bed or out in public. Avoid or reduce how much caffeine or alcohol you drink. Give yourself time when you urinate. Keep all follow-up visits. This is important. Contact a health care provider if: You have unexplained back pain. Your symptoms do not get better with treatment. You develop side effects from the medicine you are taking. Your urine becomes very dark or has a bad smell. Your lower abdomen becomes distended and you have trouble passing urine. Get help right away if: You have a fever or chills. You suddenly cannot urinate. You feel light-headed or very dizzy, or you faint. There are large amounts of blood or clots in your urine. Your urinary problems become hard to manage. You develop moderate to severe low back or flank pain. The flank is the side of your body between the ribs and the hip. These symptoms may be an emergency. Get help right away. Call 911. Do not wait to see if the symptoms will go away. Do not drive yourself to the hospital. Summary Benign prostatic hyperplasia (BPH) is an enlarged prostate that is caused by the normal aging process. It is not caused by cancer. An enlarged prostate can press on the urethra. This can make it hard to pass urine. This condition is more likely to develop in men older than 50 years. Get help right away if you suddenly cannot urinate. This information is not intended to replace advice given to you by your health care provider. Make sure you discuss any questions you have with your health care provider. Document Revised: 2022 Document Reviewed: 2022 [facility] Patient Education 2023 [employer]. Follow Up Care 02/15/2024 14:03:41 With:GREG GUAMAN, Karan Sebastian, VIKTORIYAL Address: [facility] [address], [place] [address]- When: Unknown [facility] [place] 05-28-2024 Note Patient Education Urology Benign Prostatic Hyperplasia Benign prostatic hyperplasia (BPH) is an enlarged prostate gland that is caused by the normal aging process. The prostate may get bigger as a man gets older. The condition is not caused by cancer. The prostate is a walnut-sized gland that is involved in the production of semen. It is located in front of the rectum and below the bladder. The bladder stores urine. The urethra carries stored urine out of the body. An enlarged prostate can press on the urethra. This can make it harder to pass urine. The buildup of urine in the bladder can cause infection. Back pressure and infection may progress to bladder damage and kidney (renal) failure. What are the causes? This condition is part of the normal aging process. However, not all men develop problems from this condition. If the prostate enlarges away from the urethra, urine flow will not be blocked. If it enlarges toward the urethra and compresses it, there will be problems passing urine. What increases the risk? This condition is more likely to develop in men older than 50 years. What are the signs or symptoms? Symptoms of this condition include: ? Getting up often during the night to urinate. ? Needing to urinate frequently during the day. ? Difficulty starting urine flow. ? Decrease in size and strength of your urine stream. ? Leaking (dribbling) after urinating. ? Inability to pass urine. This needs immediate treatment. ? Inability to completely empty your bladder. ? Pain when you pass urine. This is more common if there is also an infection. ? Urinary tract infection (UTI). How is this diagnosed? This condition is diagnosed based on your medical history, a physical exam, and your symptoms. Tests will also be done, such as: ? A post-void bladder scan. This measures any amount of urine that may remain in your bladder after you finish urinating. ? A digital rectal exam. In a rectal exam, your health care provider checks your prostate by putting a lubricated, gloved finger into your rectum to feel the back of your prostate gland. This exam detects the size of your gland and any abnormal lumps or growths. ? An exam of your urine (urinalysis). ? A prostate specific antigen (PSA) screening. This is a blood test used to screen for prostate cancer. ? An ultrasound. This test uses sound waves to electronically produce a picture of your prostate gland. Your health care provider may refer you to a specialist in kidney and prostate diseases (urologist). How is this treated? Once symptoms begin, your health care provider will monitor your condition (active surveillance or watchful waiting). Treatment for this condition will depend on the severity of your condition. Treatment may include: ? Observation and yearly exams. This may be the only treatment needed if your condition and symptoms are mild. ? Medicines to relieve your symptoms, including: ? Medicines to shrink the prostate. ? Medicines to relax the muscle of the prostate. ? Surgery in severe cases. Surgery may include: ? Prostatectomy. In this procedure, the prostate tissue is removed completely through an open incision or with a laparoscope or robotics. ? Transurethral resection of the prostate (TURP). In this procedure, a tool is inserted through the opening at the tip of the penis (urethra). It is used to cut away tissue of the inner core of the prostate. The pieces are removed through the same opening of the penis. This removes the blockage. ? Transurethral incision (TUIP). In this procedure, small cuts are made in the prostate. This lessens the prostate's pressure on the urethra. ? Transurethral microwave thermotherapy (TUMT). This procedure uses microwaves to create heat. The heat destroys and removes a small amount of prostate tissue. ? Transurethral needle ablation (TUNA). This procedure uses radio frequencies to destroy and remove a small amount of prostate tissue. ? Interstitial laser coagulation (ILC). This procedure uses a laser to destroy and remove a small amount of prostate tissue. ? Transurethral electrovaporization (TUVP). This procedure uses electrodes to destroy and remove a small amount of prostate tissue. ? Prostatic urethral lift. This procedure inserts an implant to push the lobes of the prostate away from the urethra. Follow these instructions at home: ? Take cqzm-lbg-yhldfci and prescription medicines only as told by your health care provider. ? Monitor your symptoms for any changes. Contact your health care provider with any changes. ? Avoid drinking large amounts of liquid before going to bed or out in public. ? Avoid or reduce how much caffeine or alcohol you drink. ? Give yourself time when you urinate. ? Keep all follow-up visits. This is important. Contact a health care provider if: ? You have unexplained back pain. ? Your symptoms do not get better with treatment. ? You develop side effec (more content not included)... [facility] 10-03-2023 Evaluation note Encounter Date Diagnosis Assessment Notes Sep, Mild persistent asthma, uncomplicated (ICD-10 - J45.30) Other than the cold weather (-1'F today) and strenuous activity, he states his breathing is fairly well controlled on Symbicort with rare albuterol use. Denies any adverse effects with breathing. Does not feel he requires any additional inhaled therapy (e.g. LAMA). Continue Symbicort for now. He states summer with allergies affects him - will see him back in 6 months to re-evaluate. Sep, PARAMJIT (obstructive sleep apnea) (ICD-10 - G47.33) Cqmy-qv-bunm encounter performed with the patient to document continued need for PAP therapy. -DME: [facility] -Compliance was reviewed from: 09/03/2023 - 10/02/2023 -Overall compliance: 30/30 (100%) days -Greater than 4 hour use: 23/30 (77%) days -Current mode & pressures: AirCurve 10 VAuto BiPAP / -Residual AHI: 6.2 -Air leak: 6.8 (95%) -Mask/harness fitting: Good -Sleep quality: Patient continues to state he wakes up after 4-6 hours of sleep due to an unknown cause - denies nocturia, pain, etc. -Daytime hypersomnolence: Decreased with use -Recommendations : Patient was changed from CPAP to BiPAP. He finds it significantly more tolerable than the CPAP. He feels the pressures are better and he is not struggling to breathe as with the CPAP. He still has nocturnal awakenings for unclear reasons - discussed sleep aids are not ideal as he can be called to work in the middle of the night. His residual AHI is slightly high @ 6.2. Discussed changing pressures with patient - will see him back in 6 months and if he is still having an elevated AHI, will increase the IPAP. Encouraged patient to continue to wear it if he goes back to sleep after waking up. Sep, GERD (gastroesophagea l reflux disease) (ICD-10 - K21.9) Patient states since starting omeprazole, his GERD symptoms have resolved. Will continue omeprazole for now. Sep, long term (current) use of inhaled steroids (ICD-10 - Z79.51) Patient was counseled to rinse & gargle with water after inhaled corticosteroid use. Sep, History of tobacco abuse (ICD-10 - Z87.891) He will not meet current LDCT criteria (<20 pack years). [facility] Other 12-11-2023 Evaluation note* Encounter Date Diagnosis Assessment Notes Treatment Notes Treatment Clinical Notes Aug, Well adult exam (ICD-10 - Z00.00) We have discussed the necessity of following up with PCP regularly as well as specialists, as needed. Discussed F/U with dentistry and optometry at least yearly. Discussed all preventative measures/ cancer screenings as applicable to this patient. Emphasized the importance of a reduced fat, low carb diet to promote heart health and controlled blood sugars. Reviewed social history and ensured patient is safe within the home today. Pt denies any abuse of alcohol, nicotine, caffeine or recreational drugs. I have ensured patient is of stable mental and physical health today. We have discussed appropriate F/U schedule as well as blood work and vaccinations that apply. All questions answered and patient is sent home pleased, without concerns. [facility] Other 10-16-2023 Evaluation note* Encounter Date Diagnosis Assessment Notes Treatment Notes Treatment Clinical Notes Jun, Asthma, mild intermittent, well-controlled (ICD-10 - J45.20) 16 Oct, 2023 Cor pulmonale (ICD-10 - I27.81) Jun, Rhinitis (ICD-10 - J31.0) Jun, GERD (gastroesophageal reflux disease) (ICD-10 - K21.9) Jun, Obstructive apnea (ICD-10 - G47.33) [facility] Other 09-19-2023 Evaluation note* Encounter Date Diagnosis Assessment Notes Treatment Notes Treatment Clinical Notes May, Acute allergic rhinitis (ICD-10 - J30.9) [facility] Other 06-15-2023 Evaluation note* Encounter Date Diagnosis Assessment Notes Treatment Notes Treatment Clinical Notes Feb, Dyspnea (ICD-10 - R06.00) Feb, Asthma, mild intermittent, well-controlled (ICD-10 - J45.20) Feb, Cor pulmonale (ICD-10 - I27.81) Feb, Excessive daytime sleepiness (ICD-10 - G47.19) [facility] Other 06-12-2023 Evaluation note* Encounter Date Diagnosis Assessment Notes Treatment Notes Treatment Clinical Notes Feb, Acute allergic rhinitis (ICD-10 - J30.9) Pt requests kenalog IM. Has tried several OTC meds without resolution of symptoms. [facility] Other 03-23-2023 Evaluation note* Encounter Date Diagnosis Assessment Notes Treatment Notes Treatment Clinical Notes Nov, Right ventricular enlargement (ICD-10 - I51.7) [facility] Other 02-28-2023 Evaluation note* Encounter Date Diagnosis Assessment Notes Treatment Notes Treatment Clinical Notes Oct, Dyspnea on exertion (ICD-10 - R06.09) [facility] Other 02-28-2023 Evaluation note* Encounter Date Diagnosis Assessment Notes Treatment Notes Treatment Clinical Notes Oct, Dyspnea on exertion (ICD-10 - R06.09) Will check labs, echo, ekg and r/o metabolic and cardiac causes for his dyspnea. This has been a huge change in the past 6-8 months. 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 * Started having ear ache on the left, headache. * Hot flashes and sometimes night sweats. * Energy lower and having trouble staying active * ENT did not find anything wrong * Headache: Every night at 7pm, left ear pain as if there's fluid. Behind the ear that improves with sleep. sinus pressure and sinus pressure. ENT started him on Triamterene-HCTZ * Allergy meds for sinus headache * Double vision: Eyes getting worse rapidly. last 6 months * Blurry vision not always the same sometimes better than other days. * Peripheral vision: Certain times during the day have tunnel vision * Galactorrhea: No * Energy: Drinks more coffee 2 cups in the morning and 1 cup after work. Usually very active. But nownot able to workout as much declining over the past year * Sleep: Wakes up frquently at night chronically. No issue with falling asleep. * Woke up at 3am with headache * Weight: Gaining a little bit of weight since not exercising. 10 lbs in 6 months * BM: No * Appetite: No * Hand and foot size: Swelling in his hands no change in shoe * Polyuria, polydipsia and Nocturia: Thirsty a lot, Drinks 24 ounces 3-4 during the day * Wakes up once at night to pee * Dry skin * Proximal muscle weakness: Feels generalized weakness * Cramps: No cramps * Shaves once a week * Low libido (getting worse over the last year) * No morning erection for the past year * Difficulty maintaining erection (For a while) * Kids 4 kids * Had COVID November 2019, Never tested positive after * Meds: * Excedrin * MVI * Tramterene -HCTZ * FHx: * Father is on thyroid meds * Diabetes, heart problems, double amputation [facility] Work Phone: 1(801) 372-677606-29-2022 History of Present illness Narrative* The MRI of the sella from March 17 shows as nonenhancing 1.2 cm mass in the center of the gland. * Started having ear ache on the left, headache. * Hot flashes and sometimes night sweats. * Energy lower and having trouble staying active * ENT did not find anything wrong * Headache: Every night at 7pm, left ear pain as if there's fluid. Behind the ear that improves with sleep. sinus pressure and sinus pressure. ENT started him on Triamterene-HCTZ * Allergy meds for sinus headache * Double vision: Eyes getting worse rapidly. last 6 months * Blurry vision not always the same sometimes better than other days. * Peripheral vision: Certain times during the day have tunnel vision * Galactorrhea: No * Energy: Drinks more coffee 2 cups in the morning and 1 cup after work. Usually very active. But nownot able to workout as much declining over the past year * Sleep: Wakes up frquently at night chronically. No issue with falling asleep. * Woke up at 3am with headache * Weight: Gaining a little bit of weight since not exercising. 10 lbs in 6 months * BM: No * Appetite: No * Hand and foot size: Swelling in his hands no change in shoe * Polyuria, polydipsia and Nocturia: Thirsty a lot, Drinks 24 ounces 3-4 during the day * Wakes up once at night to pee * Dry skin * Proximal muscle weakness: Feels generalized weakness * Cramps: No cramps * Shaves once a week * Low libido (getting worse over the last year) * No morning erection for the past year * Difficulty maintaining erection (For a while) * Kids 4 kids * Had COVID November 2019, Never tested positive after * Meds: * Excedrin * MVI * Tramterene -HCTZ * FHx: * Father is on thyroid meds * Diabetes, heart problems, double amputation [facility] Work Phone: [phone]) 405-972806-29-2022 History of Present illness Narrative* The MRI of the sella from March 17 shows as nonenhancing 1.2 cm mass in the center of the gland. * Started having ear ache on the left, headache. * Hot flashes and sometimes night sweats. * Energy lower and having trouble staying active * ENT did not find anything wrong * Headache: Every night at 7pm, left ear pain as if there's fluid. Behind the ear that improves with sleep. sinus pressure and sinus pressure. ENT started him on Triamterene-HCTZ * Allergy meds for sinus headache * Double vision: Eyes getting worse rapidly. last 6 months * Blurry vision not always the same sometimes better than other days. * Peripheral vision: Certain times during the day have tunnel vision * Galactorrhea: No * Energy: Drinks more coffee 2 cups in the morning and 1 cup after work. Usually very active. But nownot able to workout as much declining over the past year * Sleep: Wakes up frquently at night chronically. No issue with falling asleep. * Woke up at 3am with headache * Weight: Gaining a little bit of weight since not exercising. 10 lbs in 6 months * BM: No * Appetite: No * Hand and foot size: Swelling in his hands no change in shoe * Polyuria, polydipsia and Nocturia: Thirsty a lot, Drinks 24 ounces 3-4 during the day * Wakes up once at night to pee * Dry skin * Proximal muscle weakness: Feels generalized weakness * Cramps: No cramps * Shaves once a week * Low libido (getting worse over the last year) * No morning erection for the past year * Difficulty maintaining erection (For a while) * Kids 4 kids * Had COVID November 2019, Never tested positive after * Meds: * Excedrin * MVI * Tramterene -HCTZ * FHx: * Father is on thyroid meds * Diabetes, heart problems, double amputation [facility] Work Phone: [phone]) [phone] NotePROCEDURE: MRI BRAIN WO W CON COMPARISON: None. HISTORY: Sensorineural hearing loss of left ear; left side headache, ear pain, and neck pain for one and a half months TECHNIQUE: A variety of imaging planes and parameters were utilized for visualization of suspected pathology. Images were performed without and with intravenous Dotarem contrast. FINDINGS: IACS: No evidence of acoustic schwannoma or other posterior fossa mass. INNER EARS: No abnormal signal intensity. MIDDLE EARS: No fluid or abnormal soft tissue. MASTOIDS: No fluid or abnormal soft tissue. SKULL BASE: Negative. Cavernous sinus and Meckel's caves are normal. CEREBRUM: No edema, hemorrhage, mass, acute infarction, or inappropriate atrophy. CEREBELLUM: No edema, hemorrhage, mass, acute infarction, or inappropriate atrophy. BRAINSTEM: No edema, hemorrhage, mass, acute infarction, or inappropriate atrophy. CSF SPACES: Ventricles, cisterns, and sulci are appropriate for age. No hydrocephalus, subarachnoid hemorrhage, or mass. SINUSES: Limited views demonstrate no significant mucosal thickening or fluid. ORBITS: Limited views are unremarkable. OTHER: Enlarged pituitary gland, 12 mm. No abnormal meningeal or parenchymal enhancement. IMPRESSION: 1. Enlarged pituitary gland; mass versus adenoma. Consider follow-up MRI with pituitary protocol. 2. No abnormal or suspicious findings to account for patient's left ear symptoms. Electronically authenticated by: ORLANDO PUTNAM Date: 2022-02-01 14:54[facility] Narrative - ReportedPatient is being seen for an initial Neurosurgical evaluation and Sellar mass.[facility] Work Phone: Evaluation + Plan note Future Appointments Appointment Date:07/30/2024 02:45:00 PM Scheduled Provider:Karan CRISTINA MD Location:[facility] Appointment Type:URO Office Visit Diagnostic Tests Pending * PSA Free & Total 05/28/24 * Testosterone Level Total 05/28/24 [facility] evaluation noteNo InformationNortVigLink Other Evaluation noteNo assessment information available [facility] Work Phone: Hishrev general Narrative - Reported* Type Description Date Medical History Hypertension Medical History Screening for viral disease Medical History Left cervical lymphadenopathy Medical History Multiple allergies Medical History Fatigue Medical History 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 Surgical History VASECTOMY Surgical History TURP Surgical History Left knee scope, repaired torn meniscus 06/2022 Hospitalization History SEE SURGICAL HX [facility] Other Hismncv general Narrative - Reported* Type Description Date Medical History Hypertension Medical History Screening for viral disease Medical History Left cervical lymphadenopathy Medical History Multiple allergies Medical History Fatigue Medical History 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 Medical History enlarged rt ventrical Surgical History VASECTOMY Surgical History TURP Surgical History Left knee scope, repaired torn meniscus 06/2022 Surgical History [place] teeth Hospitalization History SEE SURGICAL HX [facility] Other Hislpsk general Narrative - Reported* Type Description Date Medical History Hypertension Medical History Screening for viral disease Medical History Left cervical lymphadenopathy Medical History Multiple allergies Medical History Fatigue Medical History 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 Yanes is a 47-year-old man with a several month history of left-sided headache and ear pain. Heunderwent radiological imaging which demonstrated the presence of a sellar mass. He also complains of increased lethargy and not having his usual stamina.[facility] Work Phone: Hospital course Narrative No data available for this section [facility] progress note No data available for this section [facility] Chief Complaint NPV sellar massNPV sellar massNPV sellar mass Summary Purpose Family History Unknown Family Member Name Dates Details Heart problem: Father Status:Active Family history of Alzheimer' s disease: Father(V17.2, Z82.0) Status:Active Unknown Family Member Name Dates Details Heart problem: Father Status:Active Family history of Alzheimer' s disease: Father(V17.2, Z82.0) Status:Active Unknown Family Member Name Dates Details Heart problem: Father Status:Active Family history of Alzheimer' s disease: Father(V17.2, Z82.0) Status:Active Unknown Family Member Name Dates Details Family history of Alzheimer' s disease: Father(V17.2, Z82.0) Status:Active Heart problem: Father Status:Active Unknown Family Member Name Dates Details Heart problem: Father Status:Active Family history of Alzheimer' s disease: Father(V17.2, Z82.0) Status:Active Unknown Family Member Name Dates Details Heart problem: Father Status:Active Family history of Alzheimer' s disease: Father(V17.2, Z82.0) Status:Active Unknown Family Member Name Dates Details Heart problem: Father Status:Active Family history of Alzheimer' s disease: Father(V17.2, Z82.0) Status:Active Relationship Condition Age at Onset Recorded Date/T funmilayo brother Family history of mental disorder Unknown father History of stroke Unknown Heart disease Unknown Family history of mental disorder Unknown Diabetes mellitus Unknown Hypertension Unknown Advance Directives Advance Directive Response Recorded Date/ Time Advance Directives No December 17, 2 023 3:48pm Reason for Referral Reason *FU 12/17 Last OV note, labs, echo. Thank you Diagnosis 1 Right ventricular en largement (I51.7) Referral Organization [facility] Referring Provider First Name Sean Referring Provider Last Name Kye Referring Provider Specialty Family [facility]ine Referred Organization [facility] Referred Provider Luciana Lewis Referred Address [address] ,[place], [place],[address] Referred Provider Specialty Internal Med icine Referral Priority Routine General Notes Merary Mendiola 11:50:20 AM >received today, attachments made, notes locked, referral faxed Chief Complaint and Reason for Visit Chief Complaint R ventricular enlarg ement, SOB Chief Complaint R ventricular enlarg ement, SOB SOB Chief Complaint R ventricular enlarg ement, SOB SOB i27.81 g47.19 Chief Complaint R ventricular enlarg ement, SOB SOB i27.81 g47.19 G47.19 Chief Complaint 6 mo f/u Asthma, PARAMJIT , GERD Additional Source Comments REASON FOR VISIT (unrecogniz ed section and content) No Energylabs and xrayecho r esultNo Energyyour new ptRef by Dr. Leslie for Abnormal PFTwants to discuss allergiesAllergy Shot3 mo f/u Dyspnea, Asthma, Cor PulmonaleWellnesslabsCEA: 3 mo f/u Asthma, Cor Pulmonale, Rhinitis, GERD (unrecognized sect ion and content) No Status Records FoundNo Status Records FoundNo Status Records FoundNo Status Records FoundNo Status Records Found INFORMATION SOURCE (unrecogn ized section and content) DATE CREATED AUTHOR 12/07/2022 [facility] DATE CREATED AUTHOR AUTHOR'S ORGANIZ ATION 12/31/2022 [facility] DATE CREATED AUTHOR AUTHOR'S ORGANIZ ATION 12/31/2022 [facility] DATE CREATED AUTHOR AUTHOR'S ORGANIZ ATION 03/28/2023 [facility] DATE CREATED AUTHOR AUTHOR'S ORGANIZ ATION 05/28/2024 Farhat Markham [facility] Care Teams (unrecognized sec tion and content) Personnel Name: SEAN FISHMAN MD Address: Address: [address] [place] [id number] Team Status: Active Member Role Status Dates Sena Fishman MD Primary Care Provider Active Team Status: Inactive Member Role Status Dates Dakota Leslie MD Attending Provider, Refer ring Provider Active Sean Fishman MD Primary Care Provider Active Team Status: Inactive Member Role Status Dates Dakota Leslie MD Attending Provider Active Sean Fishman MD Primary Care Provider Active Team Status: Inactive Member Role Status Dates Sean Fishman MD Primary Care Provider Active Eugenio Dixon MD Attending Provider Active Team Status: Inactive Member Role Status Dates Sean Fishman MD Primary Care Provider Active Start: April 02, 2024 End: April 02, 2024 Jonny Arteaga DO Attending Provider Active St art: April 02, 2024 End: April 02, 2024 [facility] Active Start : April 02, 2024 End: April 02, 2024 Goals (unrecognized section and content) Goals may be documented in a n alternate section FOR RECORDS PERTAINING TO PATIENTS WHO ARE OR HAVE BEEN ENROLLED IN A CHEMICAL DEPENDENCY/SUBSTANCEABUSE PROGRAM, SOME INFORMATION MAY BE OMITTED. This clinical summary was aggregated from multiple sources. Caution should be exercised in using it in the provision of clinical care. This summary normalizes information from multiple sources, and as a consequence, information in this document may materially change the coding, format and clinical context of patient data. In addition, data may be omitted in some cases. CLINICAL DECISIONS SHOULD BE BASED ON THE PRIMARY CLINICAL RECORDS. [employer] provides no warranty or guarantee of the accuracy or completeness of information in this document.
[2024-05-30 04:08] LABS: PSA, Free 0.15 ng/mL; Testosterone 216 ng/dL (264-916)
== END 2024-05-29 08:07 | disposition home or self-care (01) ==
LOC: LAB 08:07
PROVIDERS: PCP Family Medicine; Visit Provider Urology
DX: E29.1 Testicular hypofunction (principal)
CPT/HCPCS: 36415; 84153; 84154; 84403